=== PATIENT | male | born 1970 | race Caucasian/White ===

== ENCOUNTER → 2020-12-02 16:30 | Outpatient (CLI) | payer BC, SELFPAY ==
[2020-12-02 17:54] LABS: Color, Urine Yellow (Yellow); Glucose, Dipstick 250 mg/dl (Normal); Ketone-Dipstick Negative (Negative); Leukocyte Esterase-Dipstick Negative /ul (Negative); Nitrite-Dipstick Negative (Negative); Occult Blood-Urine 10 /ul (Negative); Protein-Dipstick 15 mg/dl (Negative); Urine Bilirubin Dipstick Negative (Negative); Urine Clarity Clear (Clear); Urine Urobilinogen Normal (Normal)
[2020-12-02 17:59] LABS: Cholesterol 175 mg/dL (200); Glucose 345 mg/dL (74-106); High Density Lipoprotein 40 mg/dL; Triglycerides 253 mg/dL; Very Low Density Lipoprotein 51 mg/dL (5-40)
== END ==
PROVIDERS: PCP Family Medicine; Referring Provider Family Medicine; Visit Provider Family Medicine
DX: R35.0 Frequency of micturition (principal); Z80.42 Family history of malignant neoplasm of prostate; Z13.1 Encounter for screening for diabetes mellitus; Z13.220 Encounter for screening for lipoid disorders
CPT/HCPCS: 36415; 80061; 81002; 82947; 84153; G0103

== ENCOUNTER 2020-12-25 10:39 | Emergency (ER) | payer BC, SELFPAY ==
[2020-12-25 10:40] VITALS: BP 162/93; PULSE 80; RESP 16; TEMP 36.2; O2SAT 98; BMI 34.2
[2020-12-25 10:43] VITALS: BP 162/93; PULSE 83; RESP 17; O2SAT 98
--- NOTE | 2020-12-25 10:43 | NURSING ---
NO OLD EKGS
--- NOTE | 2020-12-25 10:49 | NURSING ---
NO OLD EKGS
--- NOTE | 2020-12-25 10:57 | EKG12_ITS ---
Test Reason : SYNCOPE Blood Pressure : / mmHG Vent. Rate : 073 BPM Atrial Rate : 073 BPM P-R Int : 162 ms QRS Dur : 108 ms QT Int : 362 ms P-R-T Axes : 051 -21 032 degrees QTc Int : 398 ms Normal sinus rhythm Nonspecific T wave abnormality Abnormal ECG Confirmed by BERLIN SANTIAGO, SEAN ([id number]), field map editor MIKA VELA ([id number]) on 12/30/2020 9:49:15 AM Referred By: ARIANA Confirmed By:TONY SLADE MD
--- NOTE | 2020-12-25 10:57 | CT_ITS ---
STUDY: CT BRAIN WITHOUT CONTRAST REASON FOR EXAM: Male, 50 years old. Headache after trauma RADIATION DOSAGE (If Supplied By Facility): CTDIvol = ( 44.99 ) mGy, DLP = ( 812.98 ) mGycm TECHNIQUE: Transaxial CT imaging of the brain was performed without administration of intravenous contrast material. Individualized dose optimization techniques were used for this CT. COMPARISON: No relevant priors. FINDINGS: Normal soft tissue structures. Normal calvarium. Normal size ventricles and extra-axial spaces for the patient''s age. Normal white matter tracts of the cerebral hemispheres. Normal basal ganglia and thalami. Normal brainstem. Normal cerebellum. There is no intracranial hemorrhage. There are no findings of an acute ischemic infarction. Normal visualized paranasal sinuses. CT/Brain/Head without Contrast IMPRESSION: Normal unenhanced CT scan of the brain. Electronically Signed: Cortez Casillas MD at 11:43 EDT , Service support ,
--- NOTE | 2020-12-25 11:01 | EDS_ITS ---
HPI History of Present Illness Chief Complaint: Syncope Narrative Narrative: Patient presents after a syncopal episode. He was drinking water while standing he became very lightheaded after which he passed out. He did hit his head. He has no neck pain. He has no chest pain shortness of breath or palpitations. He has no lower extremity edema or calf pain he has no DVT or PE risk factors. He is denying any abdominal pain or flank pain. No recent fever or chills. No prior cardiac medical problems he has blood pressure initially in the ED that is elevated but he denies history of hypertension. He was found to have hyperglycemia apparently it has been diet controlled in the past and does not need any medications. [facility] Medical History (Updated 12/25/20 @ 13:[address] Terrence Ca MD) Borderline diabetes Home Medications NK 12/25/20 [History Last Taken Unknown] Allergy/AdvReac Type Severity Reaction Status Date / Time No Known Allergies Allergy Verified 12/25/20 10:40 Social History Smoking Status: Never smoker ROS ROS ED ROS Narrative Past medical history: Reviewed as in HPI Medications: Reviewed Social history: Noncontributory Review of systems: All systems negative except as indicated General: No fever. Syncope as in HPI Eyes: No visual changes Head: Frontal head injury from hitting a machine at work after fainting ENT: No upper airway congestion, normal voice Neck: No neck pain Cardiovascular: No chest pain Respiratory: No shortness of breath or cough Gastrointestinal: No abdominal pain, nausea vomiting or diarrhea Genitourinary: No dysuria Musculoskeletal: Denies myalgias no difficulty with ambulation Skin: No rash Neurological: No memory loss, confusion or any focal weakness Psych: No recent behavioral changes Hematologic: No easy bleeding or easy bruising EXAM Physical Exam Narrative Exam Narrative: Physical exam General: Well nourished, Well developed, No Acute Distress Head: Normocephalic, there is a small abrasion on the front of his scalp midline. No other contusions or hematomas. Eyes: Conjunctiva not pale ENT: Moist mucous membranes Neck: Supple, Nontender, No lymphadenopathy. No C-spine tenderness Cardiovascular: Regular rate, Regular rhythm Respiratory: No distress, CTA bilaterally Abdomen: Soft, Nontender, Nondistended Back: Nontender, Normal Inspection. Negative for: CVA tenderness Extremities: Nontender, No edema Skin: Normal color, No rash Neurological: Alert, Normal Strength, Normal Sensation Psychological: Normal affect Const Vital Signs: 12/25/20 10:40 12/25/20 10:43 12/25/20 11:21 Temperature 97.2 F L Temperature Source Temporal Pulse Rate 80 83 Pulse Rate [Lying] Pulse Rate [Sitting] Pulse Rate [Standing] Respiratory Rate 16 17 Respiratory Pattern Normal Blood Pressure 162/93 H 162/93 H Blood Pressure [Lying] Blood Pressure [Sitting] Blood Pressure [Standing] Blood Pressure Mean 116 116 Blood Pressure Mean [Lying] Blood Pressure Mean [Sitting] Blood Pressure Mean [Standing] Pulse Ox 98 98 Oxygen Delivery Method Room Air Room Air 12/25/20 11:58 Temperature Temperature Source Pulse Rate Pulse Rate [Lying] 72 Pulse Rate [Sitting] 78 Pulse Rate [Standing] 81 Respiratory Rate Respiratory Pattern Blood Pressure Blood Pressure [Lying] 138/85 H Blood Pressure [Sitting] 149/92 H Blood Pressure [Standing] 154/98 H Blood Pressure Mean Blood Pressure Mean [Lying] 102 Blood Pressure Mean [Sitting] 111 Blood Pressure Mean [Standing] 116 Pulse Ox Oxygen Delivery Method MDM MDM MDM Narrative Medical decision making narrative: Patient has a normal ED work-up. He appears well. He does not meet criteria for admission according to [place] syncope rule. There is no evidence of DVT or PE. Patient is hyperglycemic apparently his PCP knows about it and is managing it although he is not on medication at this time. He just had an appointment a few days ago. I discussed this with the patient, I told him that if the blood sugars do not improve in the next few weeks he will likely be on medication, at this time he does not want to start him, he wants to continue the diet and exercise. Otherwise I will discharge him in stable condition. Lab Data Labs: Laboratory Results - last 24 hr 12/25/20 12/25/20 11:15 11:15 WBC 8.7 RBC 4.69 Hgb 14.6 Hct 43.0 MCV 91.7 MCH 31.1 MCHC 34.0 RDW Std Deviation 39.9 RDW Coeff of Sanju 11.9 Plt Count 255 MPV 9.4 Immature Gran % (Auto) 0.600 Neut % (Auto) 75.3 H Lymph % (Auto) 14.8 L Camp % (Auto) 8.3 Eos % (Auto) 0.7 Baso % (Auto) 0.3 Absolute Neuts (auto) 6.6 Absolute Lymphs (auto) 1.29 Nucleated RBC % 0 Sodium 138 Potassium 4.1 Chloride 106 Carbon Dioxide 27.0 Anion Gap 5 BUN 17 Creatinine 1.01 Estim Creat Clear Calc 98.89 Est GFR (MDRD) Af Amer 100 Est GFR (MDRD) Non-Af 83 BUN/Creatinine Ratio 16.8 Glucose 228 H Calcium 8.5 Total Bilirubin 0.30 AST 22 ALT 45 Alkaline Phosphatase 89 Troponin I < 0.015 Total Protein 6.8 Albumin 3.7 Globulin 3.1 Albumin/Globulin Ratio 1.2 Radiography Diagnostic Testing: Radiology Impression Brain CT 12/25/20 10:57 IMPRESSION: Normal unenhanced CT scan of the brain. Electronically Signed: Cortez Casillas MD at 11:43 EDT , Service support , Chest X-Ray 12/25/20 11:37 IMPRESSION: Normal x-ray examination of the chest. Electronically Signed: Cortez Casillas MD at 11:46 EDT , Service support , EKG Initial EKG: Comments: Sinus rhythm with a rate of 73. Normal DE and QTc intervals. Otherwise unremarkable EKG no obvious ischemic changes present. Interpreted by emergency doctor Discharge Plan Triage Chief Complaint: Syncope ED Provider: Terrence Ca Dx/Rx/DC Orders Clinical Impression: Syncope Instructions: ED Fainting, Uncertain Cause Prescriptions: No Action NK RF: 0 Primary Care Provider: Salvador Morejon Referrals: Brandon Dominguez MD [STAFF PHYSICIAN] - 3-5 Days Salvador Morejon MD [Primary Care Provider] - Disposition Disposition: Home, self care
[2020-12-25 11:20] LABS: Absolute Lymphocyte Count 1.29 X10^3/uL (0.83-4.51); Absolute Neutrophil Count 6.6 X10^3/uL (2.0-7.7); Basophil# 0.03 X10^3/uL; Basophil% 0.3 % (0-1); Eosinophil# 0.06 X10^3/uL; Eosinophils% 0.7 % (0-5); Hemoglobin 14.6 g/dL (13.0-16.5); Lymphocyte # 1.29 X10^3/ul (0.83-4.51); Lymphocyte % 14.8 % (19-41); Mean Corpuscular Hgb 31.1 pg (27.0-32.0); Mean Corpuscular Volume 91.7 fL (80-94); Mean Platelet Vol. 9.4 fl (6.2-12.0); Monocyte# 0.72 X10^3/uL; Monocyte% 8.3 % (0-10); NRBC Flagged by Analyzer 0 % (0-5); Neutrophil # 6.55 X10^3/uL (2.7-7.7); Neutrophil % 75.3 % (47-70); Platelet Count 255 K/mm3 (150-450); RBC Distribution Width CV 11.9 % (11.6-14.6); RBC Distribution Width SD 39.9 fl (35.1-43.9); Red Blood Count 4.69 M/mm3 (4.6-6.2); White Blood Count 8.7 K/mm3 (4.4-11.0)
--- NOTE | 2020-12-25 11:37 | RAD_ITS ---
STUDY: X-RAY CHEST REASON FOR EXAM: Male, 50 years old. Weakness TECHNIQUE: 2 AP portable views COMPARISON: None. FINDINGS: EKG leads overlie the chest The lungs are clear and expanded. There is no demonstrated pleural abnormality. Normal size heart. Normal mediastinum and fernanda. Normal visualized pulmonary arteries. Normal visualized aortic arch and descending thoracic aorta. Normal visualized thoracic spine. Normal visualized ribs, clavicles, and shoulders. There is no demonstrated abnormality of the visualized soft tissue structures of the upper abdomen. RAD/Chest 1 View (Portable) IMPRESSION: Normal x-ray examination of the chest. Electronically Signed: Cortez Casillas MD at 11:46 EDT , Service support ,
[2020-12-25 11:40] LABS: ALB/GLOB Ratio 1.2 RATIO (0.9-2.4); AST(SGOT) 22 U/L (15-37); Alanine Aminotransfer ALT/SGPT 45 U/L (16-61); Albumin, Serum 3.7 g/dL (3.2-5.0); Alkaline Phosphatase 89 U/L (45-117); Anion Gap 5 (5-15); BUN 17 mg/dL (7-18); BUN/Creat Ratio 16.8 RATIO (10-20); Calcium,Total 8.5 mg/dL (8.5-10.1); Chloride 106 mmol/L (98-107); Creatinine, Serum 1.01 mg/dL (0.70-1.30); EST Glomerular Filtration Rate 83 mL/min (>60); Est Glom Filt Rate - Afr Amer 100 mL/min (>60); Estimated Creatinine Clearance 98.89 ml/min; Globulin 3.1 g/dL (2.2-4.2); Glucose 228 mg/dL (74-106); Potassium 4.1 mmol/L (3.5-5.1); Protein, Total 6.8 g/dL (6.4-8.2); Sodium Level 138 mmol/L (136-145)
[2020-12-25 11:58] VITALS: BP 138/85; BP 149/92; BP 154/98; PULSE 72; PULSE 78; PULSE 81
[2020-12-25 13:26] VITALS: BP 158/87; PULSE 70; RESP 18; O2SAT 98
== END 2020-12-25 13:27 | disposition home or self-care (01) ==
PROVIDERS: Emergency Provider Emergency Medicine; PCP Family Medicine
DX: R55 Syncope and collapse (principal); S00.01XA Abrasion of scalp, initial encounter; W19.XXXA Unspecified fall, initial encounter; Y93.9 Activity, unspecified; Y92.9 Unspecified place or not applicable
CPT/HCPCS: 70450; 71045; 80053; 84484; 85025; 93005; 96360; 99284; J7040; A4216

== ENCOUNTER → 2021-02-19 16:51 | Outpatient (CLI) | payer BC, SELFPAY ==
[2021-02-19 19:27] LABS: PSA,Total- Diagnostic 5.98 ng/mL (0.0-4.0)
== END ==
PROVIDERS: PCP Family Medicine; Referring Provider Urology; Visit Provider Urology
DX: R97.20 Elevated prostate specific antigen [PSA] (principal)
CPT/HCPCS: 36415; 84153

== ENCOUNTER → 2021-02-23 14:14 | Outpatient (CLI) | payer BC, SELFPAY ==
[2021-02-25 15:19] LABS: PSA, Free 0.86 ng/mL; PSA, Free % 16.5 % (.); PSA, Total Ultrasensitive 5.2 ng/mL (0.0-4.0)
== END ==
PROVIDERS: PCP Family Medicine; Referring Provider Urology; Visit Provider Urology
DX: R97.20 Elevated prostate specific antigen [PSA] (principal)
CPT/HCPCS: 36415; 84153; 84154

== ENCOUNTER → 2021-03-16 | Outpatient (CLI) | payer BC, SELFPAY ==
--- NOTE | 2021-03-16 08:00 | PROSBIL_PTH ---
PATIENT: PJ BILLS LOC: [facility] U#:[id number] AGE/SX: 50/M ROOM: RE03/16/[address]: Dr. Brad Maravilla MD : 1970 BED: DIS: 03/16/2021 SPEC #: [id number] RECD: 03/16/21 16:24 STATUS: NALLELY REAndrew #: [id number] VINCENT: 03/16/21 08:[address]: Brad Maravilla DEPT: SURGICAL PATHOLOGY RECD BY: Nidia Oh ENTERED: 03/17/21 13:01 SP TYPE: PROST BX ROSA DR: Dr. Salvador Morejon MD Tissues: A - PROSTATE RIGHT B - PROSTATE RIGHT C - PROSTATE RIGHT D - PROSTATE LEFT E - PROSTATE LEFT F - PROSTATE LEFT Procedures: PROSTATE BX HEADER OPERATION: Prostate biopsy PRE-OP DIAGNOSIS: R97.20 TISSUE SUBMITTED: A - Right apex, B - Right mid, C - Right base, D - Left apex, E - Left mid, F - Left base MICROSCOPIC DIAGNOSIS A. Right prostate, apex, core biopsy: Prostatic tissue, negative for malignancy. Focal mild chronic inflammation. B. Right prostate, mid, core biopsy: Prostatic tissue, negative for malignancy. C. Right prostate, base, core biopsy: Prostatic tissue, negative for malignancy. D. Left prostate, apex, core biopsy: Prostatic tissue, negative for malignancy. E. Left prostate, mid, core biopsy: Prostatic tissue, negative for malignancy. F. Left prostate, base, core biopsy: Prostatic tissue, negative for malignancy. SJ:yanet 03/18/2021 MICROSCOPIC DESCRIPTION Slides are reviewed. GROSS DESCRIPTION A - Received is one container designated prostate, right apex. The specimen consists of two elongated fragments of light palacios-white soft tissue each measuring 0.9 cm in length and 0.1 cm in diameter. The specimen is totally submitted in one cassette. B - Received is one container designated prostate, right mid. The specimen consists of two elongated fragments of light palacios-white soft tissue measuring 0.2 and 0.6 cm in length and 0.1 cm in diameter. The specimen is totally submitted in one cassette. C - Received is one container designated prostate, right base. The specimen consists of two elongated fragments of light palacios-white soft tissue each measuring 0.7 cm in length and 0.1 cm in diameter. The specimen is totally submitted in one cassette. D - Received is one container designated prostate, left apex. The specimen consists of two elongated fragments of light palacios-white soft tissue each measuring 0.4 cm in length and 0.1 cm in diameter. The specimen is totally submitted in one cassette. E - Received is one container designated prostate, left mid. The specimen consists of two elongated fragments of light palacios-white soft tissue each measuring 0.7 cm in length and 0.1 cm in diameter. The specimen is totally submitted in one cassette. F - Received is one container designated prostate, left base. The specimen consists of two elongated fragments of light palacios-white soft tissue each measuring 0.8 cm in length and 0.1 cm in diameter. The specimen is totally submitted in one cassette. / SJ:rg 03/17/21 TC:3 CPT: 56325 x6
== END | disposition home or self-care (01) ==
LOC: LABSPEC 16:36
PROVIDERS: PCP Family Medicine; Referring Provider Urology; Visit Provider Urology
DX: R97.20 Elevated prostate specific antigen [PSA] (principal)
CPT/HCPCS: 88305; G0416

== ENCOUNTER 2021-10-02 14:15 | Outpatient (CLI) | payer BC, SELFPAY ==
[2021-10-02 16:04] LABS: PSA,Total- Diagnostic 6.83 ng/mL (0.0-4.0)
== END 2021-10-02 23:59 | disposition home or self-care (01) ==
PROVIDERS: PCP Family Medicine; Referring Provider Urology; Visit Provider Urology
DX: R97.20 Elevated prostate specific antigen [PSA] (principal)
CPT/HCPCS: 36415; 84153

== ENCOUNTER 2022-03-05 14:23 | Outpatient (CLI) | payer BC, SELFPAY ==
[2022-03-08 12:13] LABS: PSA, Free 0.97 ng/mL; PSA, Free % 23.1 % (.); PSA, Total Ultrasensitive 4.2 ng/mL (0.0-4.0)
== END 2022-03-05 23:59 | disposition home or self-care (01) ==
LOC: MTLAB 14:24
PROVIDERS: PCP Family Medicine; Referring Provider Urology; Visit Provider Urology
DX: R97.20 Elevated prostate specific antigen [PSA] (principal)
CPT/HCPCS: 36415; 84153; 84154

== ENCOUNTER → 2023-03-10 | Outpatient (CLI) | payer BC, SELFPAY ==
[2023-03-12 10:08] LABS: PSA, Free 1.16 ng/mL; PSA, Free % 22.4 % (.)
== END | disposition home or self-care (01) ==
LOC: MTLAB 14:21
PROVIDERS: PCP Family Medicine; Referring Provider Urology; Visit Provider Urology
DX: R97.20 Elevated prostate specific antigen [PSA] (principal)
CPT/HCPCS: 36415; 84153; 84154

== ENCOUNTER → 2025-04-30 | Outpatient (CLI) | payer BC, SELFPAY ==
--- OUTSIDE RECORDS SUMMARY | 2025-04-30 17:23 | XMS RPT_ITS | CCD ---
Author Organization [facility] Care Team Providers Care Supervisor Diagnostic Name Role Phone Pam Stinson Attending Unavailable Kenny Griffin Primary Care Unavailable Problems Problem Classification Problem Date Documented Da te Episodic/Chronic Diabetes mellitus without complication (1 source) Type 2 diabetes mellitus without complications; Translations: [Type 2 diabetes mellitus without complications] Onset: 04-25-2025 Chronic Other nutritional; endocrine; and metabolic disorders (1 source) Abnormal weight loss; Translations: [Abnormal weight loss] Onset: 04-25-2025 Episodic Other screening for suspected conditions (not mental disorders or infectious disease) (1 source) Encounter for screening for lipoid disorders; Translations: [Encounter for screening for lipoid disorders] Onset: 04-25-2025 Episodic Syncope (2 sources) Syncope; Translations: [Syncope and collapse] 12-25-2020 Episodic Results Test Name Value Interpretation Reference Range Facility No Panel InformationOrdered By: Brad Maravilla on 03-10-2023 Percent Free Prostate Specific Ag 1.16 ng/mL N/A [facility] Comment on above: Walter ECLIA methodol ogy. Prostate Specific Ag, Ultra-Sensitv 5.180 ng/mL 0.000-4.000 [facility] Comment on above: Walter ECLIA methodol ogy.According to the [place] [employer], Serum PSAshould decrease and remain at undetectable levels afterradical prostatectomy. The AUA defines biochemicalrecurrence as an initial PSA value 0.200 ng/mL or greaterfollowed by a subsequent confirmatory PSA value 0.200 ng/mLor greater. Values obtained with different assay methods orkits cannot be used interchangeably. Results cannot beinterpreted as absolute evidence of the presence or absenceof malignant disease. Serum or plasma free prostat e specific antigen/total prostate specific antigen ratioOrdered By: Brad Maravilla on 03-10-2023 Free PSA/Total PSA [Mass fraction] 22.4 % . [facility] Comment on above: The table below list s the probability of prostate cancer formen with non-suspicious GRACY results and total PSA between4 and 10 ng/mL, by patient age (Catalona et al, TAMMY 1998,279:1542). % Free PSA 50-64 yr 65-75 yr 0.00-10.00% 56% 55% 10.01-15.00% 24% 35% 15.01-20.00% 17% 23% 20.01-25.00% 10% 20% >25.00% 5% 9%Please note: Bailey et al did not make specific recommendations regarding the use of percent free PSA for any other population of men.Performed at: [facility] [id number] Director: Harry Aguirre PhD, Phone: [phone] No Panel Informationon 03-05 Percent Free Prostate Specific Ag 0.97 ng/mL N/A [facility] Work Phone: Comment on above: [employer] methodol ogy. Prostate Specific Antigen Total 4.2 ng/mL 0.0-4.0 [facility] Work Phone: Comment on above: [employer] methodol ogy.According to the [place] [employer], Serum PSAshould decrease and remain at undetectable levels afterradical prostatectomy. The AUA defines biochemicalrecurrence as an initial PSA value 0.2 ng/mL or greaterfollowed by a subsequent confirmatory PSA value 0.2 ng/mLor greater. Values obtained with different assay methods orkits cannot be used interchangeably. Results cannot beinterpreted as absolute evidence of the presence or absenceof malignant disease. Serum or plasma free prostat e specific antigen/total prostate specific antigen ratioon 03-05-2022 Free PSA/Total PSA [Mass fraction] 23.1 % . [facility] Work Phone: Comment on above: The table below list s the probability of prostate cancer formen with non-suspicious GRACY results and total PSA between4 and 10 ng/mL, by patient age (Catalona et al, TAMMY 1998,279:1542). % Free PSA 50-64 yr 65-75 yr 0.00-10.00% 56% 55% 10.01-15.00% 24% 35% 15.01-20.00% 17% 23% 20.01-25.00% 10% 20% >25.00% 5% 9%Please note: Bailey et al did not make specific recommendations regarding the use of percent free PSA for any other population of men.Performed at: [address] [id number] Director: Harry Aguirre PhD, Phone: [phone] Encounters Encounter Date Encounter Type Care Provider Facility Start: 04-25-2025 [facility] Facility :[facility] Start: 03-10-2023 End: 03-10-2023 ambulatory [facility] Work Phone: Start: 03-10-2023 End: 03-10-2023 Patient encounter procedure [facility] Work Phone: Start: 03-05-2022 End: 03-05-2022 Patient encounter procedure [facility] Payers Date Payer Category Payer Self-pay [id number] 2025 Unknown [id number] Private Health Insurance [id number] Unknown [id number] Social History Date Type Detail Facility Start: 12-25-2020 [facility] Start: 12-25-2020 Non-smoker [facility] Start: 1970 Sex Assigned At Male W [facility] Evaluation note Note Date & Type Note Facility Evaluation note No assessment information availa ble [facility] Work Phone: Advance Directives No Advanced Directives Records Found Advance Directive Response Recorded Date/ Time Living Will No December 25, 2020 1 0:44am Power of Psychological Anthropologist No December 25, 2020 10:44am Summary Purpose Family History No Family History Records Found Additional Source Comments Goals (unrecognized section and content) Goals may be documented in a n alternate sectionGoals may be documented in an alternate section Care Teams (unrecognized sec tion and content) Team Status: Active Member Role Status Dates Clint Culp MD Family Provider Active Dr. Kenny Griffin DO Primary Care Provider Active Team Status: Inactive Member Role Status Dates Dr. Brad Maravilla MD Attending Provider, Referr ing Provider Active Dr. Kenny Griffin DO Primary Care Provider Active (unrecognized sect ion and content) No Status Records Found INFORMATION SOURCE (unrecogn ized section and content) DATE CREATED AUTHOR 04/27/[address] [facility] FOR RECORDS PERTAINING TO PATIENTS WHO ARE OR HAVE BEEN ENROLLED IN A CHEMICAL DEPENDENCY/SUBSTANCEABUSE PROGRAM, SOME INFORMATION MAY BE OMITTED. This clinical summary was aggregated from multiple sources. Caution should be exercised in using it in the provision of clinical care. This summary normalizes information from multiple sources, and as a consequence, information in this document may materially change the coding, format and clinical context of patient data. In addition, data may be omitted in some cases. CLINICAL DECISIONS SHOULD BE BASED ON THE PRIMARY CLINICAL RECORDS. [employer] provides no warranty or guarantee of the accuracy or completeness of information in this document.
[2025-04-30 19:02] LABS: Hematocrit 38.1 % (40-54); Hemoglobin 13.5 g/dL (13.0-16.5); Immature Granulocytes Count 0.010 X10^3/uL (0.0-0.0); Mean Corp Hgb Conc 35.4 g/dL (32-36); Mean Corpuscular Volume 86.6 fL (80-94); Mean Platelet Vol. 10.6 fl (6.2-12.0); NRBC Flagged by Analyzer 0 % (0-5); Platelet Count 251 K/mm3 (150-450); RBC Distribution Width CV 12.8 % (11.6-14.6); RBC Distribution Width SD 39.9 fl (35.1-43.9); Red Blood Count 4.40 M/mm3 (4.6-6.2); White Blood Count 5.7 K/mm3 (4.4-11.0)
[2025-04-30 19:14] LABS: Cholesterol 127 mg/dL (<=200); Ferritin 495 ng/mL (37-417); Free T3 3.1 pg/mL (2.18-3.98); Low Density Lipoprotein Calc. 70 mg/dL; Triglycerides 61 mg/dL; Very Low Density Lipoprotein 12 mg/dL (5-40); cholesterol:hdl ratio screen 2.83
[2025-04-30 21:02] LABS: AST(SGOT) 24 U/L (<=37); Alanine Aminotransfer ALT/SGPT 20 U/L (<=46); Albumin, Serum 4.3 g/dL (3.5-5.0); Alkaline Phosphatase 95 U/L (40-129); BUN 18 mg/dL (4-19); Calcium,Total 9.2 mg/dL (7.6-11.0); Carbon Dioxide 28.9 mmol/L (21.0-32.0); Chloride 97 mmol/L (98-108)
[2025-04-30 21:03] LABS: Glucose 168 mg/dL (70-99)
[2025-04-30 21:16] LABS: Anion Gap 15 (5-15); BUN/Creat Ratio 17.9 RATIO (10-20); Globulin 3.0 g/dL (2.2-4.2); Iron 51 ug/dL (65-175); Iron Binding Capacity,Total 270 ug/dL (250-450); Iron Binding Capacity,Unsat 219 ug/dL (228-428)
[2025-05-01 08:57] LABS: Potassium 2.5 mmol/L (3.3-5.1)
== END | disposition home or self-care (01) ==
PROVIDERS: PCP Nurse Practitioner Family; Referring Provider Nurse Practitioner Family; Visit Provider Nurse Practitioner Family
DX: Z13.220 Encounter for screening for lipoid disorders (principal); E11.9 Type 2 diabetes mellitus without complications; R63.4 Abnormal weight loss
CPT/HCPCS: 36415; 80053; 80061; 82728; 83540; 83550; 84439; 84443; 84481; 85025; 86376

== ENCOUNTER 2025-05-01 12:10 | Emergency (ER) | payer BC, SELFPAY ==
[2025-05-01] VITALS (14 sets, daily range): BP systolic 158–186; BP diastolic 87–106; PULSE 57–77; RESP 12–18; TEMP 36.6–36.8; O2SAT 83–100; BMI 27.1
--- NOTE | 2025-05-01 14:10 | EKG12_ITS ---
Test Reason : ABN LABS Blood Pressure : */* mmHG Vent. Rate : 56 BPM Atrial Rate : 56 BPM P-R Int : 184 ms QRS Dur : 114 ms QT Int : 460 ms P-R-T Axes : 19 -23 198 degrees QTcB Int : 443 ms Sinus bradycardia Left ventricular hypertrophy with repolarization abnormality ( R in aVL , [place] product ) Abnormal ECG Confirmed by Alok Andrews ([id number]), film and video editor MIKA VELA ([id number]) on 05/03/2025 5:47:11 AM Referred By: Confirmed By: Alok Andrews
--- NOTE | 2025-05-01 14:11 | EDS_ITS ---
HPI History of Present Illness Chief Complaint: Abn Labs Narrative Narrative: 54-year-old male presents with his because of abnormal labs. It was reported that he had a low potassium. They relate history that he has not seen a doctor in quite some time. They went on for last approximately 5 days ago, and had lab work drawn yesterday. They saw a provider at the [facility]. They were told today that he had a low potassium and that he needed to report to the ED. Patient is asymptomatic with this. He does not feel any heart palpitations, denies any weakness. He does not take any diuretics, takes no medications. He did state that he had a few episodes of diarrhea within the last week. [facility] Medical History Borderline diabetes Home Medications ?Medication ?Instructions ?Recorded ?Last Taken ?Type potassium chloride 20 mEq 40 meq (2 x 20 mEq) PO DAILY #10 05/01/25 Unknown Rx tablet,extended TABLETS release(part/cryst) (Klor-Con M) Allergy/AdvReac Type Severity Reaction Status Date / Time No Known Allergies Allergy Verified 05/01/25 12:13 Social History Smoking Status: Never smoker ROS ROS ED ROS Narrative Review of system is negative for generalized weakness, heart palpitations, denies any symptoms. Asymptomatic. States feels well. Did have diarrhea that is resolved over the last week. EXAM Physical Exam Narrative Exam Narrative: Afebrile. Vital signs noted. Nontoxic-appearing. Cardiovascular examination reveals regular rate and rhythm. Lungs are clear to auscultation bilaterally. Abdomen is soft and nontender with positive bowel sounds, no guarding or rebound. Neurological examination nonfocal, nonlateralizing. Moves all extremities. No noted pedal edema. Const Vital Signs: 05/01/25 12:10 05/01/25 13:18 05/01/25 13:20 Temperature 97.8 F 98 F Temperature Source Oral Oral Pulse Rate 70 72 Respiratory Rate 18 12 Respiratory Effort Normal Respiratory Pattern Normal Blood Pressure 181/103 H 163/87 H Blood Pressure Mean 129 112 Pulse Ox 100 96 Oxygen Delivery Method Room Air Room Air 05/01/25 14:00 05/01/25 15:34 05/01/25 16:13 Temperature 98.1 F 98 F Temperature Source Oral Oral Pulse Rate 60 72 Respiratory Rate 14 12 Respiratory Effort Respiratory Pattern Blood Pressure 181/92 H 166/97 H 166/97 H Blood Pressure Mean 121 120 120 Pulse Ox 98 98 Oxygen Delivery Method Room Air Room Air 05/01/25 17:05 05/01/25 17:06 05/01/25 17:24 Temperature 98.2 F Temperature Source Oral Pulse Rate 62 60 57 L Respiratory Rate 17 14 16 Respiratory Effort Respiratory Pattern Blood Pressure 186/106 H 186/106 H 179/97 H Blood Pressure Mean 128 132 122 Pulse Ox 99 Oxygen Delivery Method Room Air 05/01/25 17:25 05/01/25 18:26 05/01/25 18:29 Temperature 98 F Temperature Source Oral Pulse Rate 77 74 Respiratory Rate 16 14 Respiratory Effort Respiratory Pattern Blood Pressure 179/97 H 171/95 H 171/94 H Blood Pressure Mean 124 117 119 Pulse Ox 83 95 Oxygen Delivery Method Room Air 05/01/25 20:14 05/01/25 21:00 05/01/25 21:43 Temperature 97.9 F Temperature Source Pulse Rate 57 L 59 L 59 L Respiratory Rate 15 15 15 Respiratory Effort Respiratory Pattern Blood Pressure 158/90 H Blood Pressure Mean 112 Pulse Ox 100 Oxygen Delivery Method MDM MDM MDM Narrative Medical decision making narrative: Differential diagnosis includes but not limited to laboratory error versus potassium loss from diarrhea versus hypokalemia from acute renal failure. I did review his outpatient laboratory work and he had a normal creatinine and his potassium was low at 2.5. I reviewed his CBC that was obtained per protocol and is grossly unremarkable except for hematocrit 38.7. Normal white count of 5.4, hemoglobin 14.1. CMP is significant for potassium of 2.5 with BUN normal at 13 and creatinine 0.75. LFTs are grossly unremarkable. I added a magnesium given his repeat potassium being low at 2.5. It is normal at 1.9. At this point in time, he was given oral potassium of 40 mill equivalents, as well as 40 mill equivalents intravenously. I feel he can be discharged to follow-up with further potassium supplementation orally and repeat potassium check by his primary care provider. EKG had been obtained and interpreted by myself independently as sinus bradycardia at 56 bpm without ectopy or acute ST changes, no STEMI. Repeat examination prior to discharge shows him feeling the same, asymptomatic. He was written a prescription for potassium to take 40 mill equivalents daily for up to 5 days. He was told he should have his potassium rechecked by his primary care provider in the next 3 to 5 days. Return instructions to the emergency department were reviewed. Disposition is discharged home in stable condition. History & Record Review Discussion w/independent historian: Patient and Family Additional record(s) reviewed:: Prior outpatient record (Hypokalemia on outpatient labs.) Lab Data Attestation: I reviewed the patient's lab results. Labs: Laboratory Results - last 24 hr 05/01/25 05/01/25 05/01/25 12:20 13:37 14:31 WBC 5.4 RBC 4.49 L Hgb 14.1 Hct 38.7 L MCV 86.2 MCH 31.4 MCHC 36.4 H RDW Std Deviation 39.7 RDW Coeff of Sanju 12.7 Plt Count 225 MPV 9.6 Immature Gran % (Auto) 0.200 Neut % (Auto) 59.2 Lymph % (Auto) 26.8 [place] % (Auto) 11.2 H Eos % (Auto) 2.0 Baso % (Auto) 0.6 Absolute Neuts (auto) 3.2 Absolute Lymphs (auto) 1.44 Nucleated RBC % 0 Sodium Cancelled Cancelled 141 Potassium Cancelled Cancelled 2.5 L* Chloride Cancelled Cancelled 100 Carbon Dioxide Cancelled Cancelled 28.9 Anion Gap Cancelled Cancelled 12 BUN Cancelled Cancelled 13 Creatinine Cancelled Cancelled 0.75 Estim Creat Clear Calc Cancelled Cancelled 127.25 Est GFR (MDRD) Non-Af Cancelled Cancelled 107 BUN/Creatinine Ratio Cancelled Cancelled 17.7 Glucose Cancelled Cancelled 169 H Calcium Cancelled Cancelled 9.1 Magnesium 1.9 Total Bilirubin Cancelled Cancelled 0.57 AST Cancelled Cancelled 23 ALT Cancelled Cancelled 16 Alkaline Phosphatase Cancelled Cancelled 94 Total Protein Cancelled Cancelled 6.8 Albumin Cancelled Cancelled 4.2 Globulin Cancelled Cancelled 2.7 Albumin/Globulin Ratio Cancelled Cancelled 1.5 Discharge Plan Triage Chief Complaint: Abn Labs ED Provider: Alexandru Lee Dx/Rx/DC Orders Clinical Impression: Hypokalemia Instructions: ED Hypokalemia Prescriptions: New potassium chloride [Klor-Con M20] 20 mEq tablet,ER particles/crystals 40 meq PO DAILY Qty: 10 0RF Primary Care Provider: Pam Stinson Referrals: Pam Stinson, PART TIME RECEPTIONIST-C [Primary Care Provider, Family Practice] - 3-5 Days Activity Restrictions/Additional Instructions: Supplement your potassium with 40 halie equivalents daily for the next 3 days. Have your potassium rechecked in the next 3 to 5 days by your primary care provider. Print Language: Ivorian Disposition Disposition: Home, Self Care Discharge Date/Time: 05/01/25 21:43
[2025-05-01 14:38] LABS: Hematocrit 38.7 % (40-54); Hemoglobin 14.1 g/dL (13.0-16.5); Immature Granulocytes Count 0.010 X10^3/uL (0.0-0.0); Mean Corp Hgb Conc 36.4 g/dL (32-36); Mean Corpuscular Volume 86.2 fL (80-94); Mean Platelet Vol. 9.6 fl (6.2-12.0); NRBC Flagged by Analyzer 0 % (0-5); Platelet Count 225 K/mm3 (150-450); RBC Distribution Width CV 12.7 % (11.6-14.6); RBC Distribution Width SD 39.7 fl (35.1-43.9); Red Blood Count 4.49 M/mm3 (4.6-6.2); White Blood Count 5.4 K/mm3 (4.4-11.0)
[2025-05-01 15:42] LABS: AST(SGOT) 23 U/L (<=37); Alanine Aminotransfer ALT/SGPT 16 U/L (<=46); Albumin, Serum 4.2 g/dL (3.5-5.0); Alkaline Phosphatase 94 U/L (40-129); Anion Gap 12 (5-15); BUN 13 mg/dL (4-19); BUN/Creat Ratio 17.7 RATIO (10-20); Calcium,Total 9.1 mg/dL (7.6-11.0); Carbon Dioxide 28.9 mmol/L (21.0-32.0); Chloride 100 mmol/L (98-108); Estimated Creatinine Clearance 127.25 ml/min (50-250); Globulin 2.7 g/dL (2.2-4.2); Glucose 169 mg/dL (70-99); Potassium 2.5 mmol/L (3.3-5.1)
[2025-05-01] MEDS: Potassium Chloride Oral Tablet 20 MEQ 40 MEQ PO (16:11)
[2025-05-01] MEDS: KCL 40mEq in 0.9% NS 40 MEQ/1,000 ML IV.SOLN 250 MEQ IV (16:26)
[2025-05-01 16:51] LABS: Magnesium 1.9 mg/dL (1.5-2.2)
== END 2025-05-01 21:43 | disposition home or self-care (01) ==
PROVIDERS: Emergency Provider Emergency Medicine; PCP Nurse Practitioner Family; Visit Provider Emergency Medicine
DX: E87.6 Hypokalemia (principal)
CPT/HCPCS: 80053; 83735; 85025; 93005; 96365; 96366; 99282; A4216

== ENCOUNTER → 2025-05-06 | Outpatient (CLI) | payer BC, SELFPAY ==
--- OUTSIDE RECORDS SUMMARY | 2025-05-06 15:42 | XMS RPT_ITS ---
Author Name Auto Generated Organization [facility] Care Team Providers Care Fact Checker Name Role Phone PAM STINSON Referring UnavailISIS Lima Attending Unavailable PROBLEMS DATE TYPE CONDITION / CODE ATTENDING STATUS QUITA RCE 05/06/2025 Active Screen for colon cancer / Z12.11(ICD-10) ISIS NIETO Active [facility] PROCEDURES No Procedure Records Found RESULTS CNOV Observed: 05/06/2025 4:00 PM Status: COMPLETED Source: [facility] Office Visit (GENSWS) SAUL BILLS ([id number]) 1970 Date Time Provider Department 05/06/25 4:00 PM ISIS NIETO GENLSEIA During your visit today, we recorded the following information about you: Pulse Respiration Blood pressure Weight 84/minute 14/minute 172/108 93.4 kg Isis Nieto APRN.CNP 05/06/2025 4:06 PM Signed HISTORY AND PHYSICAL Saul Prasanna Leslie : 1970 REFERRING PHYSICIAN: Pam Stinson [address] [facility] [id number] CHIEF COMPLAINT: Patient presents with: Consult: Due for colonoscopy HPI: Saul is a 54 year old male referred for endoscopy. Saul notes due for screening colonoscopy. Saul denies abdominal pain. Saul denies diarrhea. Saul denies constipation. Saul denies a change in bowel habits. Saul denies melena. Saul denies bright red blood per rectum. Saul notes family history of colon issues. Maternal grandfather with colon cancer Saul denies heartburn. Saul denies dysphagia. Saul has not undergone prior endoscopy. Current Outpatient Medications Medication Sig metFORMIN (GLUCOPHAGE) 500 mg tablet Take 500 mg by mouth two times a day with meals. multivitamin ORAL tablet Take one(1) tablet daily. naproxen 500 mg ORAL tablet Take 1 tablet by mouth twice daily as needed. FOR PAIN. TAKE WITH FOOD. cyclobenzaprine (FLEXERIL) 10 mg ORAL tablet Take 1 tablet by mouth every 8 hours as needed. FOR PAIN OR SPASMS No current facility-administered medications for this visit. ALLERGIES: Patient has no known allergies. No past medical history on file. PAST SURGICAL HISTORY Procedure Laterality Date TONSILLECTOMY PRIMARY/SECONDARY <AGE 12 Tonsillectomy FAMILY HISTORY Problem Relation Age of Onset None Mother None Father None Sister None Brother SOCIAL HISTORY[1] REVIEW OF SYMPTOMS: REVIEW OF SYSTEMS: General: The patient denies fatigue, + weight loss, denies weight gain, denies feeling hot, and feelings of cold. Eyes: The patient denies glaucoma, denies eye injury/surgery, denies glasses or contacts. Ear/Nose/Throat: The patient denies allergies, denies hayfever, denies ear infections, and denies bloody noses. Cardiovascular: The patient denies chest pain, denies heart disease, + high blood pressure, denies high cholesterol, and denies poor circulation. Respiratory: The patient denies tuberculosis, denies pneumonia, denies frequent cough, denies shortness of breath, and denies coughing up blood. Gastrointestinal: The patient denies difficulty swallowing, denies acid reflux, denies ulcers, denies jaundice/hepatitis, denies gallbladder problems, denies vomiting, denies black or tarry stools, denies hemorrhoids, denies bleeding from rectum, denies diverticulitis, denies constipation, denies diarrhea, denies loss of stool control, and denies hernias. Kidney/Bladder: The patient denies kidney stones, denies urine infections, and denies bloody urine. Skin: The patient denies a history of skin cancer, denies bleeding/changing moles, and denies a history of skin rash. Neurologic: The patient denies a history of epilepsy/convulsions, denies headaches, denies head/spinal injuries, and denies stroke/TIA. Psychiatric: The patient denies psychiatric medications, denies depression, and denies voices. Endocrine: The patient denies thyroid disorders, + diabetes, and denies hormonal problems. Hematologic: The patient denies a history of bruising, denies bleeding, and denies anemia. Infections: The patient denies a history of measles and mumps, denies rheumatic fever, and denies sexually transmitted diseases. Musculoskeletal: The patient denies back pain/injury, denies back problems, denies sciatica, denies knee/foot trouble, denies arthritis, or denies gout. PHYSICAL EXAMINATION: General: The patient is 54 year old, male well nourished, well hydrated in no acute distress. The patient is oriented to time, place, and person. VITALS: Blood pressure 172/108, pulse 84, resp. rate 14, weight 93.4 kg (205 lb 12.8 oz), SpO2 98%. There is no height or weight on file to calculate BMI. HEENT: Normal cephalic, ataumatic, pupils are equally round, sclera are anicteric, mucous membranes are moist, oropharynx is clear. Neck has no masses or asymmetry . Respiratory: Clear to auscultation. Cardiac: Regular rate and rhythm. Abdominal exam: Soft, nontender, with no palpable masses. No hepatosplenomegaly. No palpable hernias. Extremities: no clubbing or cyanosis LABORATORY VALUES: As Noted RADIOLOGIC STUDIES: As Noted Assessment IMPRESSION: screen for colon cancer PLAN: I have reviewed my findings with the surgeon. Will plan for lower endoscopy. We discussed the risks and benefits of the planned endoscopy in terms understandable to the patient. I have informed the patient that complications can occur including failure to complete the endoscopy and perforation. Saul had the opportunity to ask questions concerning the planned endoscopy. Saul freely consents to surgery. I plan to use miraLAX bowel preparation I have explained to the patient the difference between IV conscious sedation and MAC anesthesia - and I have offered either, according to the patient's wishes. I have explained that with IV conscious sedation there is no anesthesia provider available and therefore there is a limitation of the amount of IV medications that can be given and that the patient may wake up in the middle of the procedure and/or experience pain/discomfort during the procedure. Further discussion was done and the patient was given the opportunity to ask questions and all questions were answered. Saul chooses IV conscious sedation. Saul was counseled that if there are changes in his/her medical condition, to let the office know if surgery should proceed. If there are changes in patient's medical condition from time of this encounter to the day of the procedure that preclude anesthesia, patient may have procedure cancelled for patient's safety. Diagnoses: (Z12.11) Screen for colon cancer (primary encounter diagnosis) Portions of this documentation were copied and pasted from previous office visit notes in order to provide a cohesive continuity of the history. The note has been reviewed and edited and updated as necessary. Isis Nieto APRN.VAMPER [1] Social History Tobacco Use Smoking status: Never Substance Use Topics Alcohol use: No Drug use: No Referring Provider: PAM STINSON [[id number]] Allergies As of Date: 05/06/2025 (No Known Allergies) Date Reviewed: 05/06/2025 Reviewed by: Isis Nieto APRN.VAMPER - Fully Assessed Reason for Visit: Consult [173] Cmt: Due for colonoscopy Primary Visit Diagnosis:Screen for colon cancer [Z12.11] Order(s):COLONOSCOPY SCREENING [GI51] Order #: [id number] FUTURE Prescriptions as of 05/06/2025 - metFORMIN (GLUCOPHAGE) 500 mg tablet Take 500 mg by mouth two times a day with meals. - naproxen 500 mg ORAL tablet Take 1 tablet by mouth twice daily as needed. FOR PAIN. TAKE WITH FOOD. - cyclobenzaprine (FLEXERIL) 10 mg ORAL tablet Take 1 tablet by mouth every 8 hours as needed. FOR PAIN OR SPASMS - multivitamin ORAL tablet Take one(1) tablet daily. Problem List As Of Date 05/06/2025 Noted Resolved Routine medical exam [Z00.00] 08/28/2010 Encounter Status:Closed by ISIS NIETO on 05/06/25 PROGRESS Observed: 05/06/2025 4:00 PM Status: COMPLETED Source: [facility] HNO ID: [id number] Author: ISIS NIETO APRN.VAMPER Service: ? Author Type: Nurse Practitioner Type: Progress Notes Filed: 05/06/2025 16:06 Note Text: HISTORY AND PHYSICAL Saul Bills : 1970 REFERRING PHYSICIAN: Pam Stinson [address] [facility] [address] CHIEF COMPLAINT: Patient presents with: Consult: Due for colonoscopy HPI: Saul is a 54 year old male referred for endoscopy. Saul notes due for screening colonoscopy. Saul denies abdominal pain. Saul denies diarrhea. Saul denies constipation. Saul denies a change in bowel habits. Saul denies melena. Saul denies bright red blood per rectum. Saul notes family history of colon issues. Maternal grandfather with colon cancer Saul denies heartburn. Saul denies dysphagia. Saul has not undergone prior endoscopy. Current Outpatient Medications Medication Sig metFORMIN (GLUCOPHAGE) 500 mg tablet Take 500 mg by mouth two times a day with meals. multivitamin ORAL tablet Take one(1) tablet daily. naproxen 500 mg ORAL tablet Take 1 tablet by mouth twice daily as needed. FOR PAIN. TAKE WITH FOOD. cyclobenzaprine (FLEXERIL) 10 mg ORAL tablet Take 1 tablet by mouth every 8 hours as needed. FOR PAIN OR SPASMS No current facility-administered medications for this visit. ALLERGIES: Patient has no known allergies. No past medical history on file. PAST SURGICAL HISTORY Procedure Laterality Date TONSILLECTOMY PRIMARY/SECONDARY <AGE 12 Tonsillectomy FAMILY HISTORY Problem Relation Age of Onset None Mother None Father None Sister None Brother SOCIAL HISTORY[1] REVIEW OF SYMPTOMS: REVIEW OF SYSTEMS: General: The patient denies fatigue, + weight loss, denies weight gain, denies feeling hot, and feelings of cold. Eyes: The patient denies glaucoma, denies eye injury/surgery, denies glasses or contacts. Ear/Nose/Throat: The patient denies allergies, denies hayfever, denies ear infections, and denies bloody noses. Cardiovascular: The patient denies chest pain, denies heart disease, + high blood pressure, denies high cholesterol, and denies poor circulation. Respiratory: The patient denies tuberculosis, denies pneumonia, denies frequent cough, denies shortness of breath, and denies coughing up blood. Gastrointestinal: The patient denies difficulty swallowing, denies acid reflux, denies ulcers, denies jaundice/hepatitis, denies gallbladder problems, denies vomiting, denies black or tarry stools, denies hemorrhoids, denies bleeding from rectum, denies diverticulitis, denies constipation, denies diarrhea, denies loss of stool control, and denies hernias. Kidney/Bladder: The patient denies kidney stones, denies urine infections, and denies bloody urine. Skin: The patient denies a history of skin cancer, denies bleeding/changing moles, and denies a history of skin rash. Neurologic: The patient denies a history of epilepsy/convulsions, denies headaches, denies head/spinal injuries, and denies stroke/TIA. Psychiatric: The patient denies psychiatric medications, denies depression, and denies voices. Endocrine: The patient denies thyroid disorders, + diabetes, and denies hormonal problems. Hematologic: The patient denies a history of bruising, denies bleeding, and denies anemia. Infections: The patient denies a history of measles and mumps, denies rheumatic fever, and denies sexually transmitted diseases. Musculoskeletal: The patient denies back pain/injury, denies back problems, denies sciatica, denies knee/foot trouble, denies arthritis, or denies gout. PHYSICAL EXAMINATION: General: The patient is 54 year old, male well nourished, well hydrated in no acute distress. The patient is oriented to time, place, and person. VITALS: Blood pressure 172/108, pulse 84, resp. rate 14, weight 93.4 kg (205 lb 12.8 oz), SpO2 98%. There is no height or weight on file to calculate BMI. HEENT: Normal cephalic, ataumatic, pupils are equally round, sclera are anicteric, mucous membranes are moist, oropharynx is clear. Neck has no masses or asymmetry . Respiratory: Clear to auscultation. Cardiac: Regular rate and rhythm. Abdominal exam: Soft, nontender, with no palpable masses. No hepatosplenomegaly. No palpable hernias. Extremities: no clubbing or cyanosis LABORATORY VALUES: As Noted RADIOLOGIC STUDIES: As Noted Assessment IMPRESSION: screen for colon cancer PLAN: I have reviewed my findings with the surgeon. Will plan for lower endoscopy. We discussed the risks and benefits of the planned endoscopy in terms understandable to the patient. I have informed the patient that complications can occur including failure to complete the endoscopy and perforation. Saul had the opportunity to ask questions concerning the planned endoscopy. Saul freely consents to surgery. I plan to use miraLAX bowel preparation I have explained to the patient the difference between IV conscious sedation and MAC anesthesia - and I have offered either, according to the patient's wishes. I have explained that with IV conscious sedation there is no anesthesia provider available and therefore there is a limitation of the amount of IV medications that can be given and that the patient may wake up in the middle of the procedure and/or experience pain/discomfort during the procedure. Further discussion was done and the patient was given the opportunity to ask questions and all questions were answered. Saul chooses IV conscious sedation. Saul was counseled that if there are changes in his/her medical condition, to let the office know if surgery should proceed. If there are changes in patient's medical condition from time of this encounter to the day of the procedure that preclude anesthesia, patient may have procedure cancelled for patient's safety. Diagnoses: (Z12.11) Screen for colon cancer (primary encounter diagnosis) Portions of this documentation were copied and pasted from previous office visit notes in order to provide a cohesive continuity of the history. The note has been reviewed and edited and updated as necessary. Isis Nieto APRN.VAMPER [1] Social History Tobacco Use Smoking status: Never Substance Use Topics Alcohol use: No Drug use: No ALLERGIES DATE TYPE / CODE NAME / CODE REACTION SEVERITY SOURCE Drug Class/[id number](SNO MED CT) NO KNOWN ALLERGIES [facility] ENCOUNTERS ADMIT/DISCHARGE ACCOUNT NUMBER ADMITTING ENCOUNTER CLASS LOC ATION SOURCE 05/06/2025/ [id number] Ambulatory [facility] ing:[facility]GS [facility] PAYERS ENCOUNTER GUARANTOR PAYER SUBSCRIBER SOURCE 05/06/2025 Primary Insurance:BLUE CARD PPO OOSPolicy Number: [id number] kamille Date:[id number] Name:Kailey Mims CLAUDETTERTHDOB: [id number] [place] [address] [facility]
--- OUTSIDE RECORDS SUMMARY | 2025-05-06 15:42 | XMS RPT_ITS ---
Author Name Auto Generated Organization [facility] Care Team Providers Care Dairy Manager Name Role Phone PAM STINSON Referring UnavailISIS [place] Attending Unavailable PROBLEMS DATE TYPE CONDITION / CODE ATTENDING STATUS QUITA RCE 05/06/2025 Active Screen for colon cancer / Z12.11(ICD-10) ISIS NIETO Active [facility] PROCEDURES No Procedure Records Found RESULTS CNOV Observed: 05/06/2025 4:00 PM Status: COMPLETED Source: [facility] Office Visit (GENSWS) SAUL BILLS ([id number]) 1970 Date Time Provider Department 05/06/25 4:00 PM ISIS NIETO GENLESIA During your visit today, we recorded the following information about you: Pulse Respiration Blood pressure Weight 84/minute 14/minute 172/108 93.4 kg Isis Nieto APRN.CNP 05/06/2025 4:06 PM Signed HISTORY AND PHYSICAL Saul Prasanna Leslie : 1970 REFERRING PHYSICIAN: Pam Stinson [address] [facility] [id number] CHIEF COMPLAINT: Patient presents with: Consult: Due [...] edited and updated as necessary. Isis Nieto APRN.WAFER FABRICATION TECHNICIAN [1] Social History Tobacco Use Smoking status: Never Substance Use Topics Alcohol use: No Drug use: No Referring Provider: PAM STINSON [[id number]] Allergies As of Date: 05/06/2025 (No Known Allergies) Date Reviewed: 05/06/2025 Reviewed by: Isis Nieto APRN.WAFER FABRICATION TECHNICIAN - Fully Assessed Reason for Visit: Consult [173] Cmt: Due for colonoscopy Primary Visit Diagnosis:Screen for colon cancer [Z12.11] Order(s):COLONOSCOPY SCREENING [GI51] Order #: [id number] FUTURE Prescriptions as of 05/06/2025 - metFORMIN [...] Observed: 05/06/2025 4:00 PM Status: COMPLETED Source: [facility] HNO ID: [id number] Author: ISIS NIETO APRN.WAFER FABRICATION TECHNICIAN Service: ? Author Type: Nurse Practitioner Type: Progress Notes Filed: 05/06/2025 16:06 Note Text: HISTORY AND PHYSICAL Saul Bills : 1970 REFERRING PHYSICIAN: Pam Stinson [address] [facility] [address] CHIEF COMPLAINT: Patient presents with: Consult: Due [...] edited and updated as necessary. Isis Nieto APRN.WAFER FABRICATION TECHNICIAN [1] Social History Tobacco Use Smoking status: Never Substance Use Topics Alcohol use: No Drug use: No ALLERGIES DATE TYPE / CODE NAME / CODE REACTION SEVERITY SOURCE Drug Class/[id number](SNO MED CT) NO KNOWN ALLERGIES [facility] ENCOUNTERS ADMIT/DISCHARGE ACCOUNT NUMBER ADMITTING ENCOUNTER CLASS LOC ATION SOURCE 05/06/2025/ [id number] [facility] ing:[facility] PAYERS ENCOUNTER GUARANTOR PAYER SUBSCRIBER SOURCE 05/06/2025 Primary Insurance:BLUE CARD PPO OOSPolicy Number: [id number] kamille Date:[id number] Name:Kailey Mims CLAUDETTERTHDOB: [id number] [place] [address] [facility]
[2025-05-06 17:56] LABS: Hematocrit 40.1 % (40-54); Hemoglobin 13.6 g/dL (13.0-16.5); Immature Granulocytes Count 0.010 X10^3/uL (0.0-0.0); Mean Corp Hgb Conc 33.9 g/dL (32-36); Mean Corpuscular Volume 89.5 fL (80-94); NRBC Flagged by Analyzer 0 % (0-5); POSITIVE COUNT YES; RBC Distribution Width CV 13.0 % (11.6-14.6); RBC Distribution Width SD 42.3 fl (35.1-43.9); Red Blood Count 4.48 M/mm3 (4.6-6.2); White Blood Count 6.5 K/mm3 (4.4-11.0)
[2025-05-06 18:34] LABS: PSA,Total- Diagnostic 7.44 ng/mL (0.00-4.00)
[2025-05-06 18:36] LABS: AST(SGOT) 29 U/L (<=37); Alanine Aminotransfer ALT/SGPT 15 U/L (<=46); Albumin, Serum 4.1 g/dL (3.5-5.0); Alkaline Phosphatase 93 U/L (40-129); Anion Gap 15 (5-15); BUN 17 mg/dL (4-19); BUN/Creat Ratio 20.1 RATIO (10-20); Calcium,Total 9.3 mg/dL (7.6-11.0); Carbon Dioxide 22.9 mmol/L (21.0-32.0); Chloride 103 mmol/L (98-108); Globulin 3.0 g/dL (2.2-4.2); Glucose 143 mg/dL (70-99); Potassium 3.8 mmol/L (3.3-5.1)
[2025-05-06 20:03] LABS: Differential Indicated SCAN CRITERIA MET
[2025-05-06 20:04] LABS: Differential Comment SCANNED
== END | disposition home or self-care (01) ==
LOC: MTLAB 16:18
PROVIDERS: PCP Nurse Practitioner Family
DX: E87.6 Hypokalemia (principal)
CPT/HCPCS: 36415; 80053; 84153; 85025

== ENCOUNTER → 2025-05-14 | Outpatient (CLI) | payer BC, SELFPAY ==
[2025-05-16 13:08] LABS: PSA, Free 1.37 ng/mL; PSA, Free % 19.1 % (.); PSA, Total Ultrasensitive 7.160 ng/mL (0.000-4.000)
== END | disposition home or self-care (01) ==
PROVIDERS: PCP Nurse Practitioner Family; Referring Provider Urology; Visit Provider Urology
DX: R97.20 Elevated prostate specific antigen [PSA] (principal)
CPT/HCPCS: 36415; 84153; 84154

== ENCOUNTER → 2025-05-28 | Outpatient (CLI) | payer BC, SELFPAY ==
[2025-05-28 19:59] LABS: Hematocrit 38.8 % (40-54); Hemoglobin 13.3 g/dL (13.0-16.5); Immature Granulocytes Count 0.010 X10^3/uL (0.0-0.0); Mean Corp Hgb Conc 34.3 g/dL (32-36); Mean Corpuscular Volume 88.6 fL (80-94); Mean Platelet Vol. 9.4 fl (6.2-12.0); NRBC Flagged by Analyzer 0 % (0-5); Platelet Count 250 K/mm3 (150-450); RBC Distribution Width CV 13.1 % (11.6-14.6); RBC Distribution Width SD 42.7 fl (35.1-43.9); Red Blood Count 4.38 M/mm3 (4.6-6.2); White Blood Count 5.8 K/mm3 (4.4-11.0)
[2025-05-28 20:40] LABS: AST(SGOT) 20 U/L (<=37); Alanine Aminotransfer ALT/SGPT 17 U/L (<=46); Albumin, Serum 4.2 g/dL (3.5-5.0); Alkaline Phosphatase 83 U/L (40-129); Anion Gap 13 (5-15); BUN 18 mg/dL (4-19); BUN/Creat Ratio 17.9 RATIO (10-20); Calcium,Total 9.3 mg/dL (7.6-11.0); Carbon Dioxide 28.7 mmol/L (21.0-32.0); Chloride 100 mmol/L (98-108); Ferritin 460 ng/mL (37-417); Globulin 2.9 g/dL (2.2-4.2); Glucose 125 mg/dL (70-99); Potassium 3.0 mmol/L (3.3-5.1)
[2025-05-28 23:33] LABS: Iron Binding Capacity,Unsat 216 ug/dL (228-428)
[2025-05-31 17:45] LABS: Iron 62 ug/dL (65-175)
== END | disposition home or self-care (01) ==
LOC: VSLAB 16:19
PROVIDERS: PCP Nurse Practitioner Family; Visit Provider Nurse Practitioner Family
DX: E87.6 Hypokalemia (principal); D50.9 Iron deficiency anemia, unspecified
CPT/HCPCS: 36415; 80053; 82728; 83540; 83550; 85025

== ENCOUNTER → 2025-06-03 | Outpatient (CLI) | payer BC, SELFPAY ==
--- NOTE | 2025-06-03 13:22 | MRI_ITS ---
EXAM: PELVIS W/WO CONTRAST 06/03/2025 CLINICAL HISTORY: ELEVATED PSA. TECHNIQUE: Procedure Code: [id number] Modality: MR Procedure: PELVIS W/WO CONTRAST Multiplanar and multisequence images were obtained without and with intravenous gadolinium contrast. CONTRAST: Clariscan VOLUME: 19 mL COMPARISON: None FINDINGS: Image quality:Diagnostic PSA:7.44ng/mL Prostate size: 7.2 x 5.1 x 5.6cms Prostate volume: 107.67mL PSA density:0.069 ng/mLï¿½ Prostate Transition zone: PI-RADS 2 findings. Benign prostatic hyperplasia. Well encapsulated nodules. No suspicious abnormality. No restricted diffusion or abnormal pattern of enhancement. *Lesion 1: 11 millimeter nodule within the anterior right transitional zone at the midportion of the gland best seen on ADC map image 13 of series 7. No distinct encapsulation. Homogeneous T2 signal similar to adjacent nodules. No significant enhancement above background.. *T2 score: 2; mostly encapsulated nodule or a homogeneous circumscribed nodule without encapsulation, or a homogeneous mildly hypointense area between nodules. *DWI score: 4; focal, marked hypointensity on ADC and marked hyperintensity on high b-value DWI; <1.5 cm. *DCE: Negative. *Overall PI-RADS: PI-RADS 2. *Extracapsular extension:No gross extracapsular extension. Peripheral Zone: Background changes of likely prostatitis (PI-RADS 2). No suspicious nodule *Lesion 1: None. *T2 score: 1. *DWI score: 1; no abnormality on ADC or high b-value DWI. *DCE: Negative. *Overall PI-RADS: 1. *Extracapsular extension:No gross extracapsular extension. Neurovascular bundles: Unremarkable. Seminal vesicles: Unremarkable. Bladder: Bladder diverticulum arising from the posterior right wall. Lymph nodes: Unremarkable. Bones: No destructive or frankly suspicious bony lesions identified on nondedicated evaluation. Mild tendinosis at the insertion of the hamstrings bilaterally. Other: Fat containing right inguinal hernia. MRI/Pelvis W/WO Contrast IMPRESSION: Prostatomegaly with benign prostatic hyperplasia. 11 millimeter nodule in the anterior right transitional zone, midgland, with a background on benign prostatic hyperplasia with no distinct encapsulation. The lesion demonstrates no significant enhancement abo ve background and only mild restricted diffusion. PI-RADS 2. Reading Location: [place]
== END | disposition home or self-care (01) ==
PROVIDERS: PCP Nurse Practitioner Family; Referring Provider Urology; Visit Provider Urology
DX: R97.20 Elevated prostate specific antigen [PSA] (principal)
CPT/HCPCS: 72197; A9575; A4216

== ENCOUNTER → 2025-07-23 | Outpatient (CLI) | payer BC, SELFPAY ==
[2025-07-23 17:43] LABS: Hematocrit 40.2 % (40-54); Hemoglobin 14.2 g/dL (13.0-16.5); Immature Granulocytes Count 0.010 X10^3/uL (0.0-0.0); Mean Corp Hgb Conc 35.3 g/dL (32-36); Mean Corpuscular Volume 87.2 fL (80-94); Mean Platelet Vol. 9.3 fl (6.2-12.0); NRBC Flagged by Analyzer 0 % (0-5); Platelet Count 254 K/mm3 (150-450); RBC Distribution Width CV 12.8 % (11.6-14.6); RBC Distribution Width SD 40.3 fl (35.1-43.9); Red Blood Count 4.61 M/mm3 (4.6-6.2); White Blood Count 5.8 K/mm3 (4.4-11.0)
[2025-07-23 18:10] LABS: AST(SGOT) 17 U/L (<=37); Alanine Aminotransfer ALT/SGPT 16 U/L (<=46); Albumin, Serum 4.3 g/dL (3.5-5.0); Alkaline Phosphatase 91 U/L (40-129); Anion Gap 12 (5-15); BUN 13 mg/dL (4-19); BUN/Creat Ratio 16.9 RATIO (10-20); Calcium,Total 9.5 mg/dL (7.6-11.0); Carbon Dioxide 30.6 mmol/L (21.0-32.0); Chloride 100 mmol/L (98-108); Ferritin 453 ng/mL (37-417); Globulin 2.8 g/dL (2.2-4.2); Glucose 139 mg/dL (70-99); Iron 78 ug/dL (65-175); Iron Binding Capacity,Total 278 ug/dL (250-450); Iron Binding Capacity,Unsat 200 ug/dL (228-428); Potassium 3.0 mmol/L (3.3-5.1)
--- OUTSIDE RECORDS SUMMARY | 2025-07-23 20:28 | XMS RPT_ITS | CCD ---
Author Organization [facility] Inform ion Partnership [employer]STRUCTION [employer] [facility] Care Team Providers Care Fruit Stuffer Name Role Phone Shantell COOPERAGE SHOP SUPERVISOR-C, Isabel Primary Care Physician Shantell COOPERAGE SHOP SUPERVISOR-C, Isabel Attending Physician Shantell COOPERAGE SHOP SUPERVISOR-C, Isabel Referring Provider Alexandru Lee MD Attending Physician Alexandru Lee MD Emergency Department Physician Beam COOPERAGE SHOP SUPERVISOR-C, Terrence Attending Physician Beam COOPERAGE SHOP SUPERVISOR-C, Zebubarry Referring Provider [phone] ISIS NIETO Attending Unavailable ISABEL STINSON Referring Unavailabl PJ Knight Attending Unavailable ISIS NIETO Referring Unavailable Beam VSCTerrence Attending Unavailable Beam VSC, Terrence Referring Unavailable Shantell Isabel Primary Care Unavailable Brad Maravilla Attending Unavailable Brad Maravilla Referring Unavailable Isabel Stinson Primary Care Unavailable Isabel Stinson Attending Unavailable Shantell Isabel Primary Care Unavailable Dariushomal, Isabel Primary Care Unavailable RenitaBrad Attending Unavailable RenitaBrad Referring Unavailable ReodicAlexandru viveros Attending Unavailable Shantell Isabel Primary Care Unavailable Shantell Isabel Primary Care Unavailable Isabel Stinson Attending Unavailable Isabel Stinson Referring Unavailable Medications Current Medications Medication Drug Class(es) Dates Sig (Normalized) Sig (Original) microencapsulated potassium chloride 20 meq extended release oral tablet (2 sources) Start: 05-01-2025 Problems Problem Classification Problem Date Documented Da te Episodic/Chronic Fluid and electrolyte disorders (3 sources) Hypokalemia; Translations: [Hypokalemia] Onset: 06-06-2025 05-01-2025 Episodic Other screening for suspected conditions (not mental disorders or infectious disease) (5 sources) Encounter for screening for malignant neoplasm of colon; Translations: [Elevated prostate specific antigen [PSA]] Onset: 05-06-2025 Episodic Syncope (4 sources) Syncope; Translations: [Syncope and collapse] 12-25-2020 Episodic Results Test Name Value Interpretation Reference Range Facility Pelvis W/WO Contraston 06-03 Pelvis W/WO Contrast [facility] Imaging Services [address] [place] [address] Pelvis W/WO Contrast MR#: [id number] Acct: [id number] Name: PJ BILLS Rep #: [id number] : 1970 M 55 From: Ramos dumont MD PCP: FAVIOLA Gomez Status: REG CLI Study: Pelvis W/WO Contrast Date of Exam: 06/03/25 Exam# [id number] Ordering Dr: Brad Maravilla MD EXAM: PELVIS W/WO CONTRAST 06/03/2025 CLINICAL HISTORY: ELEVATED PSA. TECHNIQUE: Procedure Code: [id number] Modality: MR Procedure: PELVIS W/WO CONTRAST Multiplanar and multisequence images were obtained without and with intravenous gadolinium contrast. CONTRAST: Clariscan VOLUME: 19 mL COMPARISON: None FINDINGS: Image quality:Diagnostic PSA:7.44ng/mL Prostate size: 7.2 x 5.1 x 5.6cms Prostate volume: 107.67mL PSA density:0.069 ng/mL??? Prostate Transition zone: PI-RADS 2 findings. Benign prostatic hyperplasia. Well encapsulated nodules. No suspicious abnormality. No restricted diffusion or abnormal pattern of enhancement. *Lesion 1: 11 millimeter nodule within the anterior right transitional zone at the midportion of the gland best seen on ADC map image 13 of series 7. No distinct encapsulation. Homogeneous T2 signal similar to adjacent nodules. No significant enhancement above background.. *T2 score: 2; mostly encapsulated nodule or a homogeneous circumscribed nodule without encapsulation, or a homogeneous mildly hypointense area between nodules. *DWI score: 4; focal, marked hypointensity on ADC and marked hyperintensity on high b-value DWI; <1.5 cm. *DCE: Negative. *Overall PI-RADS: PI-RADS 2. *Extracapsular extension:No gross extracapsular extension. Peripheral Zone: Background changes of likely prostatitis (PI-RADS 2). No suspicious nodule *Lesion 1: None. *T2 score: 1. *DWI score: 1; no abnormality on ADC or high b-value DWI. *DCE: Negative. *Overall PI-RADS: 1. *Extracapsular extension:No gross extracapsular extension. Neurovascular bundles: Unremarkable. Seminal vesicles: Unremarkable. Bladder: Bladder diverticulum arising from the posterior right wall. Lymph nodes: Unremarkable. Bones: No destructive or frankly suspicious bony lesions identified on nondedicated evaluation. Mild tendinosis at the insertion of the hamstrings bilaterally. Other: Fat containing right inguinal hernia. MRI/Pelvis W/WO Contrast IMPRESSION: Prostatomegaly with benign prostatic hyperplasia. 11 millimeter nodule in the anterior right transitional zone, midgland, with a background on benign prostatic hyperplasia with no distinct encapsulation. The lesion demonstrates no significant enhancement above background and only mild restricted diffusion. PI-RADS 2. Reading Location: [id number] CC: FAVIOLA Stinson; Dr. Brad Maravilla MD Product Assembler: Signed Normal [facility] Ironon 05-31-2025 Iron [Mass/Vol] 62 ug/dL Low 65-175 [facility] Comment on above: Performed By: #### L 503.6030, L503.6550, L501.9520, L506.0400, L501.30725, L500.4050, L3300.6900, L500.4100, L100.0100 #### [facility] [address] [place], [address] CBC W/Diff, Automatedon 05-09 Absolute Lymph 2.04 X10 3/uL Normal 0.83-4.51 [facility] Comment on above: Performed By: #### L 503.6030, L503.6550, L501.9520, L506.0400, L501.93549, L500.4050, L3300.6900, L500.4100, L100.0100 #### [facility] [address] [facility] [place], [place], [id number] [phone] Absolute Neut 3.0 X10 3/uL Normal 2.0-7.7 [facility] Comment on above: Performed By: #### L 503.6030, L503.6550, L501.9520, L506.0400, L501.18650, L500.4050, L3300.6900, L500.4100, L100.0100 #### [facility] [address] [facility] [place], [address] ( Basophils/100 WBC (Bld) 0.7 % Normal 0-1 [facility] Comment on above: Performed By: #### L 503.6030, L503.6550, L501.9520, L506.0400, L501.31674, L500.4050, L3300.6900, L500.4100, L100.0100 #### [facility] [address] [facility] [place], [address] ([phone] Eosinophils/100 WBC (Bld) 2.2 % Normal 0-5 [facility] Comment on above: Performed By: #### L 503.6030, L503.6550, L501.9520, L506.0400, L501.73615, L500.4050, L3300.6900, L500.4100, L100.0100 #### [facility] [address] [facility] [place], [address] (403 Erythrocyte distribution width (RBC) [Ratio] 13.1 % Normal 11.6-14.6 [facility] Comment on above: Performed By: #### L 503.6030, L503.6550, L501.9520, L506.0400, L501.48202, L500.4050, L3300.6900, L500.4100, L100.0100 #### [facility] [address] [place], [address] Hematocrit (Bld) [Volume fraction] 38.8 % Low 40-54 [facility] Comment on above: Performed By: #### L 503.6030, L503.6550, L501.9520, L506.0400, L501.74569, L500.4050, L3300.6900, L500.4100, L100.0100 #### [facility] [address] [place], [address] Hemoglobin (Bld) [Mass/Vol] 13.3 g/dL Normal 13.0-16.5 [facility] Comment on above: Performed By: #### L 503.6030, L503.6550, L501.9520, L506.0400, L501.18730, L500.4050, L3300.6900, L500.4100, L100.0100 #### [facility] [address] [place], [address] IG% 0.200 Normal 0.0-0.9 [facility] Comment on above: Result Comment: IG% - Immature Granulocytes (promyelocytes, myelocytes and metamyelocytes) > 1% indicates that a LEFT SHIFT is Present. Performed By: #### L 503.6030, L503.6550, L501.9520, L506.0400, L501.43269, L500.4050, L3300.6900, L500.4100, L100.0100 #### [facility] [address] [place], [address] Lymphocytes/100 WBC (Bld) 35.1 % Normal 19-41 [facility] Comment on above: Performed By: #### L 503.6030, L503.6550, L501.9520, L506.0400, L501.08648, L500.4050, L3300.6900, L500.4100, L100.0100 #### [facility] [address] [place], [address] MCH (RBC) [Entitic mass] 30.4 pg Normal 27.0-32.0 [facility] Comment on above: Performed By: #### L 503.6030, L503.6550, L501.9520, L506.0400, L501.20880, L500.4050, L3300.6900, L500.4100, L100.0100 #### [facility] [address] [place], [address] MCHC (RBC) [Mass/Vol] 34.3 g/dL Normal 32-36 [facility] Comment on above: Performed By: #### L 503.6030, L503.6550, L501.9520, L506.0400, L501.01154, L500.4050, L3300.6900, L500.4100, L100.0100 #### [facility] [address] [place], [address] MCV (RBC) [Entitic vol] 88.6 fL Normal 80-94 [facility] Comment on above: Performed By: #### L 503.6030, L503.6550, L501.9520, L506.0400, L501.48573, L500.4050, L3300.6900, L500.4100, L100.0100 #### [facility] [address] [place], [address] Monocytes/100 WBC (Bld) 10.0 % Normal 0-10 [facility] Comment on above: Performed By: #### L 503.6030, L503.6550, L501.9520, L506.0400, L501.76538, L500.4050, L3300.6900, L500.4100, L100.0100 #### [facility] [address] [place], [address] Neutrophils/100 WBC (Bld) 51.8 % Normal 47-70 [facility] Comment on above: Performed By: #### L 503.6030, L503.6550, L501.9520, L506.0400, L501.07028, L500.4050, L3300.6900, L500.4100, L100.0100 #### [facility] [address] [place], [address] Nucleated RBC (Bld) [#/Vol] 0 10*3/uL Normal 0-5 [facility] Comment on above: Performed By: #### L 503.6030, L503.6550, L501.9520, L506.0400, L501.89083, L500.4050, L3300.6900, L500.4100, L100.0100 #### [facility] [address] [facility] [place], [address] Platelet mean volume (Bld) [Entitic vol] 9.4 fL Normal 6.2-12.0 [facility] Comment on above: Performed By: #### L 503.6030, L503.6550, L501.9520, L506.0400, L501.59243, L500.4050, L3300.6900, L500.4100, L100.0100 #### [facility] [address] [facility] [place], [address] Platelets (Bld) [#/Vol] 250 10*3/uL Normal 150-450 [facility] Comment on above: Performed By: #### L 503.6030, L503.6550, L501.9520, L506.0400, L501.78913, L500.4050, L3300.6900, L500.4100, L100.0100 #### [facility] [address] [facility] [place], [address] RBC (Bld) [#/Vol] 4.38 10*6/uL Low 4.6-6.2 [facility] Comment on above: Performed By: #### L 503.6030, L503.6550, L501.9520, L506.0400, L501.54279, L500.4050, L3300.6900, L500.4100, L100.0100 #### [facility] [address] [place], [address] (304) RDW SD 42.7 fl Normal 35.1-43.9 [facility] Comment on above: Performed By: #### L 503.6030, L503.6550, L501.9520, L506.0400, L501.66872, L500.4050, L3300.6900, L500.4100, L100.0100 #### [facility] [address] [place], [address] WBC (Bld) [#/Vol] 5.8 10*3/uL Normal 4.4-11.0 [facility] Comment on above: Performed By: #### L 503.6030, L503.6550, L501.9520, L506.0400, L501.05228, L500.4050, L3300.6900, L500.4100, L100.0100 #### [facility] [address] [place], [address] Comprehensive Metabolic [facility] 05-28-2025 Albumin [Mass/Vol] 4.2 g/dL Normal 3.5-5.0 [facility] Comment on above: Performed By: #### L 503.6030, L503.6550, L501.9520, L506.0400, L501.59606, L500.4050, L3300.6900, L500.4100, L100.0100 #### [facility] [address] [place], [address] Albumin/Globulin [Mass ratio] 1.4 {ratio} Normal 0.9-2.4 [facility] Comment on above: Performed By: #### L 503.6030, L503.6550, L501.9520, L506.0400, L501.64530, L500.4050, L3300.6900, L500.4100, L100.0100 #### [facility] [address] [place], [place], [phone] (461) ALK PHOS 83 U/L Normal 40-129 [facility] Comment on above: Performed By: #### L 503.6030, L503.6550, L501.9520, L506.0400, L501.71239, L500.4050, L3300.6900, L500.4100, L100.0100 #### [facility] [address] [place], [place], [phone] (385) ALT [Catalytic activity/Vol] 17 U/L Normal <=46 [facility] Comment on above: Performed By: #### L 503.6030, L503.6550, L501.9520, L506.0400, L501.95211, L500.4050, L3300.6900, L500.4100, L100.0100 #### [facility] [address] [place], [address] AST [Catalytic activity/Vol] 20 U/L Normal <=37 [facility] Comment on above: Performed By: #### L 503.6030, L503.6550, L501.9520, L506.0400, L501.44248, L500.4050, L3300.6900, L500.4100, L100.0100 #### [facility] [address] [place], [address] Bilirubin [Mass/Vol] 0.73 mg/dL Normal 0.00-1.30 [facility] Comment on above: Performed By: #### L 503.6030, L503.6550, L501.9520, L506.0400, L501.23005, L500.4050, L3300.6900, L500.4100, L100.0100 #### [facility] [address] [place], [address] BUN/CRE 17.9 RATIO Normal 10-20 [facility] Comment on above: Performed By: #### L 503.6030, L503.6550, L501.9520, L506.0400, L501.36627, L500.4050, L3300.6900, L500.4100, L100.0100 #### [facility] [address] [place], [address] Calcium [Mass/Vol] 9.3 mg/dL Normal 7.6-11.0 [facility] Comment on above: Performed By: #### L 503.6030, L503.6550, L501.9520, L506.0400, L501.16773, L500.4050, L3300.6900, L500.4100, L100.0100 #### [facility] [address] [place], [address] Chloride [Moles/Vol] 100 mmol/L Normal 98-108 [facility] Comment on above: Performed By: #### L 503.6030, L503.6550, L501.9520, L506.0400, L501.03553, L500.4050, L3300.6900, L500.4100, L100.0100 #### [facility] [address] [place], [address] CO2 [Moles/Vol] 28.7 mmol/L Normal 21.0-32.0 [facility] Comment on above: Performed By: #### L 503.6030, L503.6550, L501.9520, L506.0400, L501.60632, L500.4050, L3300.6900, L500.4100, L100.0100 #### [facility] [address] [place], [place], [phone] (688) Creatinine [Mass/Vol] 1.00 mg/dL Normal 0.70-1.20 [facility] Comment on above: Performed By: #### L 503.6030, L503.6550, L501.9520, L506.0400, L501.02196, L500.4050, L3300.6900, L500.4100, L100.0100 #### [facility] [address] [place], [place], [id number] (615) GAP 13 Normal 5-15 [facility] Comment on above: Performed By: #### L 503.6030, L503.6550, L501.9520, L506.0400, L501.21041, L500.4050, L3300.6900, L500.4100, L100.0100 #### [facility] [address] [place], [place], [id number] GFR/1.73 sq M.predicted among non-blacks MDRD (S/P/Bld) [Vol rate/Area] 89 mL/min/{1.73_m2} Normal >60 [facility] Comment on above: Result Comment: mL/m in/1.73m2 CKD-EPI Creatinine Equation (2020) Performed By: #### L 503.6030, L503.6550, L501.9520, L506.0400, L501.76950, L500.4050, L3300.6900, L500.4100, L100.0100 #### [facility] [address] [place], [place], [phone] (851) Globulin (S) [Mass/Vol] 2.9 g/dL Normal 2.2-4.2 [facility] Comment on above: Performed By: #### L 503.6030, L503.6550, L501.9520, L506.0400, L501.83653, L500.4050, L3300.6900, L500.4100, L100.0100 #### [facility] [address] [place], [place], [id number] Glucose [Mass/Vol] 125 mg/dL High 70-99 [facility] Comment on above: Performed By: #### L 503.6030, L503.6550, L501.9520, L506.0400, L501.68474, L500.4050, L3300.6900, L500.4100, L100.0100 #### [facility] [address] [place], [place], [id number] Potassium [Moles/Vol] 3.0 mmol/L Low 3.3-5.1 [facility] Comment on above: Performed By: #### L 503.6030, L503.6550, L501.9520, L506.0400, L501.12598, L500.4050, L3300.6900, L500.4100, L100.0100 #### [facility] [address] [place], [place], [phone] Sodium [Moles/Vol] 142 mmol/L Normal 133-145 [facility] Comment on above: Performed By: #### L 503.6030, L503.6550, L501.9520, L506.0400, L501.56518, L500.4050, L3300.6900, L500.4100, L100.0100 #### [facility] [address] [place], [place], [phone] (179) T PROT 7.0 g/dL Normal 5.9-8.4 [facility] Comment on above: Performed By: #### L 503.6030, L503.6550, L501.9520, L506.0400, L501.94848, L500.4050, L3300.6900, L500.4100, L100.0100 #### [facility] [address] [place], [address] Urea nitrogen [Mass/Vol] 18 mg/dL Normal 4-19 [facility] Comment on above: Performed By: #### L 503.6030, L503.6550, L501.9520, L506.0400, L501.42466, L500.4050, L3300.6900, L500.4100, L100.0100 #### [facility] [address] [place], [address] Ferritinon 05-28-2025 Ferritin [Mass/Vol] 460 ng/mL High 37-417 [facility] Comment on above: Performed By: #### L 503.6030, L503.6550, L501.9520, L506.0400, L501.26847, L500.4050, L3300.6900, L500.4100, L100.0100 #### [facility] [address] [place], [address] L503.6080on 05-28-2025 UIBC 216 ug/dL Low 228-428 [facility] Comment on above: Performed By: #### L 503.6030, L503.6550, L501.9520, L506.0400, L501.56524, L500.4050, L3300.6900, L500.4100, L100.0100 #### [facility] [address] [place], [address] PSA Total+%Freeon 05-16-2025 PSA, FREE 1.37 ng/mL Normal N/A [facility] Comment on above: Result Comment: Isabela BAILEY methodology. Performed By: #### L 503.6030, L503.6550, L501.9520, L506.0400, L501.35220, L500.4050, L3300.6900, L500.4100, L100.0100 #### [facility] [address] [place], [address] PSA, FREE % 19.1 Normal . [facility] Comment on above: Result Comment: The table below lists the probability of prostate cancer for men with non-suspicious GRACY results and total PSA between 4 and 10 ng/mL, by patient age (Bailey et al, TAMMY 1998, 279:1542). % Free PSA 50-64 yr 65-75 yr 0.00-10.00% 56% 55% 10.01-15.00% 24% 35% 15.01-20.00% 17% 23% 20.01-25.00% 10% 20% >25.00% 5% 9% Please note: Bailey et al did not make specific recommendations regarding the use of percent free PSA for any other population of men. Performed at: [address] [id number] [employer]: Harry Aguirre PhD, Phone: [phone] Performed By: #### L 503.6030, L503.6550, L501.9520, L506.0400, L501.28110, L500.4050, L3300.6900, L500.4100, L100.0100 #### [facility] [address] [place], [address] PSA, TOTAL ULTR 7.160 ng/mL Abnormal 0.000-4.000 [facility] Comment on above: Result Comment: Isabela BAILEY methodology. According to the [employer], Serum PSA should decrease and remain at undetectable levels after radical prostatectomy. The AUA defines biochemical recurrence as an initial PSA value 0.200 ng/mL or greater followed by a subsequent confirmatory PSA value 0.200 ng/mL or greater. Values obtained with different assay methods or kits cannot be used interchangeably. Results cannot be interpreted as absolute evidence of the presence or absence of malignant disease. Performed By: #### L 503.6030, L503.6550, L501.9520, L506.0400, L501.18634, L500.4050, L3300.6900, L500.4100, L100.0100 #### [facility] [address] [place], [address] Absolute lymphocyte countOrd ered By: Zebulun Beam on 05-06-2025 Lymphocytes Auto (Unsp spec) [#/Vol] 2.20 10*3/uL 0.83-4.51 [facility] Absolute neutrophil countOrd ered By: bulun Beam on 05-06-2025 Neutrophils (Bld) [#/Vol] 3.4 10*3/uL 2.0-7.7 [facility] Anion gap in Serum or Plasma Ordered By: bulun Beam on 05-06-2025 Anion gap [Moles/Vol] 15 mmol/L 5- [facility] Automated lymphocyte count a s percentage of total leukocytesOrdered By: bulun Beam on 05-06-2025 Lymphocytes/100 WBC Auto (Unsp spec) 34.1 % - [facility] BUN/creatinine ratioOrdered By: [facility] Caren Beam on 05-06-2025 Urea nitrogen/Creatinine [Mass ratio] 20.1 mg/mg High 10- [facility] Basophil percentageOrdered B y: [facility] Caren Beam on 05-06-2025 Basophils/100 WBC (Bld) 0.8 % 0-1 [facility] Bilirubin, totalOrdered By: [facility] Caren Beam on 05-06-2025 Bilirubin [Mass/Vol] 0.51 mg/dL 0.00-1.30 [facility] Blood manual differential co mment interpretation (narrative result)Ordered By: Zebulun Beam on 05-06-2025 Manual differential comment Mil (Bld) [Interp] SCANNED [facility] CBC W/Diff, Automatedon 04-09 PLT EST ADEQUATE Normal ADEQ [facility] Comment on above: Performed By: #### L 503.6030, L503.6550, L501.9520, L506.0400, L501.82748, L500.4050, L3300.6900, L500.4100, L100.0100 #### [facility] [address] [place], [address] SMEAR COMMENT SCANNED Normal [facility] Comment on above: Performed By: #### L 503.6030, L503.6550, L501.9520, L506.0400, L501.50916, L500.4050, L3300.6900, L500.4100, L100.0100 #### [facility] [address] [place], [address] CNOVon 05-06-2025 CNOV Office Visit (GENSWS ) -------- JAVIER BILLS ([id number]) 1970 Date Time Provider Department 05/06/25 4:00 PM ISIS NIETO During your visit today, we recorded the following information about you: Pulse Respiration Blood pressure Weight 84/minute 14/minute 172/108 93.4 kg Isis Nieto APRN.CNP 05/06/2025 4:06 PM Signed HISTORY AND PHYSICAL Javier Dalila Leslie : 1970 REFERRING PHYSICIAN: Isabel Stinson [address] [facility] [address] CHIEF COMPLAINT: Patient presents with: Consult: Due for colonoscopy HPI: Javier is a 54 year old male referred for endoscopy. Javier notes due for screening colonoscopy. Javier denies abdominal pain. Javier denies diarrhea. Javier denies constipation. Javier denies a change in bowel habits. Javier denies melena. Javier denies bright red blood per rectum. Javier notes family history of colon issues. Maternal grandfather with colon cancer Javier denies heartburn. Javier denies dysphagia. Javier has not undergone prior endoscopy. Current Outpatient [...] SURGICAL HISTORY Procedure Laterality Date TONSILLECTOMY PRIMARY/SECONDARY Tonsillectomy FAMILY HISTORY Problem Relation Age of [...] occur including failure to complete the endoscopy (more content not included)... Normal [facility] Carbon dioxide, total [Moles /volume] in Central venous bloodOrdered By: Terrence Ribeiro on 05-06-2025 CO2 [Moles/Vol] 22.9 mmol/L 21.0-32.0 [facility] Chloride assayOrdered By: Orlando Ribeiro on 05-06-2025 Chloride [Moles/Vol] 103 mmol/L 98-108 [facility] Comprehensive Metabolic Prof ilon 05-06-2025 Albumin [Mass/Vol] 4.1 g/dL Normal 3.5-5.0 [facility] Comment on above: Performed By: #### L 503.6030, L503.6550, L501.9520, L506.0400, L501.58518, L500.4050, L3300.6900, L500.4100, L100.0100 #### [facility] [address] [place], [address] Albumin/Globulin [Mass ratio] 1.4 {ratio} Normal 0.9-2.4 [facility] Comment on above: Performed By: #### L 503.6030, L503.6550, L501.9520, L506.0400, L501.31376, L500.4050, L3300.6900, L500.4100, L100.0100 #### [facility] [address] [place], [address] ALK PHOS 93 U/L Normal 40-129 [facility] Comment on above: Performed By: #### L 503.6030, L503.6550, L501.9520, L506.0400, L501.70283, L500.4050, L3300.6900, L500.4100, L100.0100 #### [facility] [address] [place], [address] ALT [Catalytic activity/Vol] 15 U/L Normal <=46 [facility] Comment on above: Result Comment: Hemo lysis present, Results??could be affected. ?? Performed By: #### L 503.6030, L503.6550, L501.9520, L506.0400, L501.74752, L500.4050, L3300.6900, L500.4100, L100.0100 #### [facility] [address] [place], [address] AST [Catalytic activity/Vol] 29 U/L Normal <=37 [facility] Comment on above: Result Comment: Hemo lysis present, Results??could be affected. ?? Performed By: #### L 503.6030, L503.6550, L501.9520, L506.0400, L501.19929, L500.4050, L3300.6900, L500.4100, L100.0100 #### [facility] [address] [place], [address] Bilirubin [Mass/Vol] 0.51 mg/dL Normal 0.00-1.30 [facility] Comment on above: Performed By: #### L 503.6030, L503.6550, L501.9520, L506.0400, L501.86700, L500.4050, L3300.6900, L500.4100, L100.0100 #### [facility] [address] [place], [address] BUN/CRE 20.1 RATIO High 10-20 [facility] Comment on above: Performed By: #### L 503.6030, L503.6550, L501.9520, L506.0400, L501.74491, L500.4050, L3300.6900, L500.4100, L100.0100 #### [facility] [address] [place], [address] Calcium [Mass/Vol] 9.3 mg/dL Normal 7.6-11.0 [facility] Comment on above: Performed By: #### L 503.6030, L503.6550, L501.9520, L506.0400, L501.78663, L500.4050, L3300.6900, L500.4100, L100.0100 #### [facility] [address] [place], [address] Chloride [Moles/Vol] 103 mmol/L Normal 98-108 [facility] Comment on above: Performed By: #### L 503.6030, L503.6550, L501.9520, L506.0400, L501.11594, L500.4050, L3300.6900, L500.4100, L100.0100 #### [facility] [address] [place], [address] CO2 [Moles/Vol] 22.9 mmol/L Normal 21.0-32.0 [facility] Comment on above: Performed By: #### L 503.6030, L503.6550, L501.9520, L506.0400, L501.60347, L500.4050, L3300.6900, L500.4100, L100.0100 #### [facility] [address] [place], [place], [id number] (305) Creatinine [Mass/Vol] 0.85 mg/dL Normal 0.70-1.20 [facility] Comment on above: Performed By: #### L 503.6030, L503.6550, L501.9520, L506.0400, L501.06544, L500.4050, L3300.6900, L500.4100, L100.0100 #### [facility] [address] [place], [address] GAP 15 Normal 5-15 [facility] Comment on above: Performed By: #### L 503.6030, L503.6550, L501.9520, L506.0400, L501.16829, L500.4050, L3300.6900, L500.4100, L100.0100 #### [facility] [address] [place], [place], [id number] (326) GFR/1.73 sq M.predicted among non-blacks MDRD (S/P/Bld) [Vol rate/Area] 103 mL/min/{1.73_m2} Normal >60 [facility] Comment on above: Result Comment: mL/m in/1.73m2 CKD-EPI Creatinine Equation (2020) Performed By: #### L 503.6030, L503.6550, L501.9520, L506.0400, L501.91970, L500.4050, L3300.6900, L500.4100, L100.0100 #### [facility] [address] [place], [address] (379) Globulin (S) [Mass/Vol] 3.0 g/dL Normal 2.2-4.2 [facility] Comment on above: Performed By: #### L 503.6030, L503.6550, L501.9520, L506.0400, L501.85067, L500.4050, L3300.6900, L500.4100, L100.0100 #### [facility] [address] [place], [address] Glucose [Mass/Vol] 143 mg/dL High 70-99 [facility] Comment on above: Performed By: #### L 503.6030, L503.6550, L501.9520, L506.0400, L501.22465, L500.4050, L3300.6900, L500.4100, L100.0100 #### [facility] [address] [place], [address] Potassium [Moles/Vol] 3.8 mmol/L Normal 3.3-5.1 [facility] Comment on above: Result Comment: Hemo lysis present, Results??could be affected. ?? Performed By: #### L 503.6030, L503.6550, L501.9520, L506.0400, L501.44230, L500.4050, L3300.6900, L500.4100, L100.0100 #### [facility] [address] [place], [address] Sodium [Moles/Vol] 141 mmol/L Normal 133-145 [facility] Comment on above: Performed By: #### L 503.6030, L503.6550, L501.9520, L506.0400, L501.47690, L500.4050, L3300.6900, L500.4100, L100.0100 #### [facility] [address] [place], [address] T PROT 7.2 g/dL Normal 5.9-8.4 [facility] Comment on above: Performed By: #### L 503.6030, L503.6550, L501.9520, L506.0400, L501.58784, L500.4050, L3300.6900, L500.4100, L100.0100 #### [facility] [address] [place], [place], [id number] Urea nitrogen [Mass/Vol] 17 mg/dL Normal 4-19 [facility] Comment on above: Performed By: #### L 503.6030, L503.6550, L501.9520, L506.0400, L501.94564, L500.4050, L3300.6900, L500.4100, L100.0100 #### [facility] [address] [place], [place], [address] Eosinophil percentageOrdered By: Bon Beam on 05-06-2025 Eosinophils/100 WBC (Bld) 2.2 % 0-5 [facility] Erythrocyte distribution wid th ratioOrdered By: [facility] Caren Beam on 05-06-2025 Erythrocyte distribution width (RBC) [Ratio] 13.0 % 11.6-14.6 [facility] Erythrocyte distribution wid th standard deviationOrdered By: [facility] Caren Beam on 05-06-2025 Erythrocyte distribution width (RBC) [Ratio] 42.3 fl 35.1-43.9 [facility] Glomerular filtration rate ( GFR) estimation/1.73 sq m using serum, plasma, or whole bOrdered By: [facility] on 05-06-2025 GFR/1.73 sq M.predicted among non-blacks MDRD (S/P/Bld) [Vol rate/Area] 103 mL/min/{1.73_m2} >60 [facility] Comment on above: mL/min/1.73m2 CKD-EP I Creatinine Equation (2020) Hematocrit Auto (Bld) [Volum e fraction]Ordered By: Terrence Ribeiro on 05-06-2025 Hematocrit (Bld) [Volume fraction] 40.1 % 40-54 [facility] Hemoglobin measurementOrdere d By: Terrence Ribeiro on 05-06-2025 Hemoglobin (Bld) [Mass/Vol] 13.6 g/dL 13.0-16.5 [facility] Immature granulocytes/100 WB C Auto (Bld)Ordered By: Bon Gema on 05-06-2025 Immature granulocytes/100 WBC (Bld) 0.200 % 0.0-0.9 [facility] Comment on above: IG% - Immature Granu locytes (promyelocytes, myelocytes and metamyelocytes) > 1% indicates that a LEFT SHIFT is Present. Laboratory - Chemistry and C hemistry - challengeOrdered By: james Ribeiro on 05-06-2025 AST [Catalytic activity/Vol] 29 U/L <38 [facility] Comment on above: Hemolysis present, R esults could be affected. MCV (mean corpuscular volume ) determinationOrdered By: Terrence Ribeiro on 05-06-2025 MCV (RBC) [Entitic vol] 89.5 fL 80-94 [facility] Mean corpuscular hemoglobin (MCH) determinationOrdered By: [facility] on 05-06-2025 MCH (RBC) [Entitic mass] 30.4 pg 27.0-32.0 [facility] Mean corpuscular hemoglobin concentration (MCHC) determinationOrdered By: james Ribeiro on 05-06-2025 MCHC (RBC) [Mass/Vol] 33.9 g/dL 32-36 [facility] Mean platelet volume determi nationOrdered By: Terrence Ribeiro on 05-06-2025 Mean platelet volume determination TNP [facility] Comment on above: Test not performedPr evious reported result: 10.8 flEdited by: RYANN on 05/06/25:2004 AMENDED REPORT 05/06/252004 MPV previously reported as: 10.8 fl Monocyte percentageOrdered B y: Terrence Ribeiro on 05-06-2025 Monocytes/100 WBC (Bld) 10.5 % High 0-10 [facility] Neutrophil percentageOrdered By: Terrence Ribeiro on 05-06-2025 Neutrophils/100 WBC (Bld) 52.2 % 47-70 [facility] Nucleated red blood cell per centageOrdered By: Terrence Beam on 05-06-2025 Nucleated RBC/100 WBC (Bld) [Ratio] 0 % 0-5 [facility] PSA Total+%Freeon 05-06-2025 PSA, FREE Normal [facility] Comment on above: Order Comment: PLEAS E ADD ON [facility] WILL TAKE A LITHIUM HEP. Result Comment: NOT ENOUGH SPECIMEN TO SEND OUT, OFFICE TO BE CALLED TO VERIFY TESTING THAT IS WANTED. Performed By: #### L 503.6030, L503.6550, L501.9520, L506.0400, L501.85590, L500.4050, L3300.6900, L500.4100, L100.0100 #### [facility] [address] [place], [address] PSA, FREE % Normal [facility] Comment on above: Order Comment: PLEAS E ADD ON [facility] WILL TAKE A LITHIUM HEP. Result Comment: NOT ENOUGH SPECIMEN TO SEND OUT, OFFICE TO BE CALLED TO VERIFY TESTING THAT IS WANTED. Performed By: #### L 503.6030, L503.6550, L501.9520, L506.0400, L501.25717, L500.4050, L3300.6900, L500.4100, L100.0100 #### [facility] [address] [place], [address] PSA, TOTAL ULTR Normal [facility] Comment on above: Order Comment: PLEAS E ADD ON [facility] WILL TAKE A LITHIUM HEP. Result Comment: NOT ENOUGH SPECIMEN TO SEND OUT, OFFICE TO BE CALLED TO VERIFY TESTING THAT IS WANTED. Performed By: #### L 503.6030, L503.6550, L501.9520, L506.0400, L501.53680, L500.4050, L3300.6900, L500.4100, L100.0100 #### [facility] [address] [place], [address] PSA,Total- Diagnosticon 04-09 PSA, DIAGNOSTIC 7.44 ng/mL High 0.00-4.00 [facility] Comment on above: Result Comment: This test was performed using the [employer] tPSA method. Measured values of a patient??sample can vary depending on the testing procedure used. PSA values determined on patient samples by different testing procedures cannot be used interchangeably. If there is a change in PSA assays while monitoring therapy, sequential testing should be performed to confirm baseline values. Performed By: #### L 503.6030, L503.6550, L501.9520, L506.0400, L501.49018, L500.4050, L3300.6900, L500.4100, L100.0100 #### [facility] [address] [place], [place], [address] Platelet countOrdered By: Orlando Ribeiro on 05-06-2025 Platelet count TNP [facility] Comment on above: Test not performedPl ease note: For this sample, a platelet estimate is provided rather than a platelet count due to platelet clumping. Other parameters associated with this sample are not affected by platelet clumping. If a more accurate platelet count is required, a redraw of the patient will be necessary. Platelet estimateOrdered By: Terrence Ribeiro on 05-06-2025 Platelets LM Ql (Bld) ADEQUATE ADEQ [facility] Potassium measurement (mass/ volume)Ordered By: Terrence Ribeiro on 05-06-2025 Potassium (Unsp spec) [Mass/Vol] 3.8 mmol/L 3.3-5.1 [facility] Comment on above: Hemolysis present, R esults could be affected. RBC Auto (Bld) [#/Vol]Ordere d By: Terrence Ribeiro on 05-06-2025 RBC (Bld) [#/Vol] 4.48 10*6/uL Low 4.6-6.2 [facility] Serum creatinine measurement (mass/volume)Ordered By: Terrence Ribeiro on 05-06-2025 Creatinine [Mass/Vol] 0.85 mg/dL 0.70-1.20 [facility] Serum globulin measurementOr dered By: Terrence Ribeiro on 05-06-2025 Globulin (S) [Mass/Vol] 3.0 g/dL 2.2-4.2 [facility] Serum glucose measurement (m ass/volume)Ordered By: Terrence Ribeiro on 05-06-2025 Glucose [Mass/Vol] 143 mg/dL High 70-99 [facility] Serum or plasma alanine sinha otransferase (ALT) measurementOrdered By: Terrence Ribeiro on 05-06-2025 ALT [Catalytic activity/Vol] 15 U/L <47 [facility] Comment on above: Hemolysis present, R esults could be affected. Serum or plasma albumin anai urement (mass/volume)Ordered By: Terrence Ribeiro on 05-06-2025 Albumin [Mass/Vol] 4.1 g/dL 3.5-5.0 [facility] Serum or plasma albumin/glob ulin mass ratioOrdered By: Terrence Ribeiro on 05-06-2025 Albumin/Globulin [Mass ratio] 1.4 {ratio} 0.9-2.4 [facility] Serum or plasma alkaline dariana sphatase measurementOrdered By: Terrence Ribeiro on 05-06-2025 ALP [Catalytic activity/Vol] 93 U/L 40-129 [facility] Serum or plasma calcium anai urement (mass/volume)Ordered By: Terrence Ribeiro on 05-06-2025 Calcium [Mass/Vol] 9.3 mg/dL 7.6-11.0 [facility] Serum or plasma urea nitroge n measurement (mass/volume)Ordered By: Terrence Ribeiro on 05-06-2025 Urea nitrogen [Mass/Vol] 17 mg/dL 4-19 [facility] Sodium levelOrdered By: Westley Ribeiro on 05-06-2025 Sodium [Moles/Vol] 141 mmol/L 133-145 [facility] Total proteinOrdered By: Tim Ribeiro on 05-06-2025 Protein [Mass/Vol] 7.2 g/dL 5.9-8.4 [facility] White blood cell (WBC) count Ordered By: Terrence Ribeiro on 05-06-2025 WBC (Bld) [#/Vol] 6.5 10*3/uL 4.4-11.0 [facility] Thyroid Peroxidase ABon - THYR PEROX AB < 9 Normal 0-34 [facility] Comment on above: Result Comment: Perf ormed at: CB - [facility] [address] [id number] [employer]: Harry Aguirre PhD, Phone: [phone] Performed By: #### L 503.2430, L503.0855, L501.8720, L506.0400, L501.82329, L500.4050, L3300.6900, L500.4100, L100.0100 #### [facility] [address] [facility] [place], [address] 12 Lead EKGon 05-01-2025 [address] [facility] [address] [place] [address] 12 Lead EKG 05/01/25 1437 MR#: [id number] Acct: [id number] Name: PJ BILLS Rep #: [id number] : 1970 54 From: Alok Andrews MD Attending Dr: Status: DEP ER Ordering Dr: Alexandru Lee MD Date: 05/01/25 Location: ED Sex: M C Admitted: Test Reason : ABN LABS Blood Pressure : */* mmHG Vent. Rate : 56 BPM Atrial Rate : 56 BPM P-R Int : 184 ms QRS Dur : 114 ms QT Int : 460 ms P-R-T Axes : 19 -23 198 degrees QTcB Int : 443 ms Sinus bradycardia Left ventricular hypertrophy with repolarization abnormality ( R in aVL , [employer] product ) Abnormal ECG Confirmed by Alok Andrews ([id number]), online editor MIKA VELA ([id number]) on 05/03/2025 5:47:11 AM Referred By: Confirmed By: Alok Andrews 05/03/25 0547 Date Alok Andrews MD CC: FAVIOLA Stinson; Dr. Alexandru Lee MD Signed Normal [facility] Absolute lymphocyte countOrd ered By: Alexandru Lee on 05-01-2025 Lymphocytes Auto (Unsp spec) [#/Vol] 1.44 10*3/uL 0.83-4.51 [facility] Absolute neutrophil countOrd ered By: Alexandru Lee on 05-01-2025 Neutrophils (Bld) [#/Vol] 3.2 10*3/uL 2.0-7.7 [facility] Anion gap in Serum or Plasma Ordered By: Alexandru Lee on 05-01-2025 Anion gap [Moles/Vol] 12 mmol/L 5-15 [facility] Automated lymphocyte count a s percentage of total leukocytesOrdered By: Alexandru Lee on 05-01-2025 Lymphocytes/100 WBC Auto (Unsp spec) 26.8 % 19- [facility] BUN/creatinine ratioOrdered By: Alexandru Lee on 05-01-2025 Urea nitrogen/Creatinine [Mass ratio] 17.7 mg/mg 10- [facility] Basophil percentageOrdered B y: Alexandru Lee on 05-01-2025 Basophils/100 WBC (Bld) 0.6 % 0-1 [facility] Bilirubin, totalOrdered By: Alexandru Lee on 05-01-2025 Bilirubin [Mass/Vol] 0.57 mg/dL 0.00-1.30 [facility] CBC W/Diff, Automatedon 04-09 Absolute Lymph 1.44 X10 3/uL Normal 0.83-4.51 [facility] Comment on above: Performed By: #### L 503.6030, L503.6550, L501.9520, L506.0400, L501.56130, L500.4050, L3300.6900, L500.4100, L100.0100 #### [facility] [address] [facility] [place], [address] Absolute Neut 3.2 X10 3/uL Normal 2.0-7.7 [facility] Comment on above: Performed By: #### L 503.6030, L503.6550, L501.9520, L506.0400, L501.27444, L500.4050, L3300.6900, L500.4100, L100.0100 #### [facility] [address] [place], [address] Basophils/100 WBC (Bld) 0.6 % Normal 0-1 [facility] Comment on above: Performed By: #### L 503.6030, L503.6550, L501.9520, L506.0400, L501.30069, L500.4050, L3300.6900, L500.4100, L100.0100 #### [facility] [address] [place], [address] Eosinophils/100 WBC (Bld) 2.0 % Normal 0-5 [facility] Comment on above: Performed By: #### L 503.6030, L503.6550, L501.9520, L506.0400, L501.69738, L500.4050, L3300.6900, L500.4100, L100.0100 #### [facility] [address] [place], [address] Erythrocyte distribution width (RBC) [Ratio] 12.7 % Normal 11.6-14.6 [facility] Comment on above: Performed By: #### L 503.6030, L503.6550, L501.9520, L506.0400, L501.26482, L500.4050, L3300.6900, L500.4100, L100.0100 #### [facility] [address] [place], [address] Hematocrit (Bld) [Volume fraction] 38.7 % Low 40-54 [facility] Comment on above: Performed By: #### L 503.6030, L503.6550, L501.9520, L506.0400, L501.82144, L500.4050, L3300.6900, L500.4100, L100.0100 #### [facility] [address] [place], [address] Hemoglobin (Bld) [Mass/Vol] 14.1 g/dL Normal 13.0-16.5 [facility] Comment on above: Performed By: #### L 503.6030, L503.6550, L501.9520, L506.0400, L501.87320, L500.4050, L3300.6900, L500.4100, L100.0100 #### [facility] [address] [place], [address] IG% 0.200 Normal 0.0-0.9 [facility] Comment on above: Result Comment: IG% - Immature Granulocytes (promyelocytes, myelocytes and metamyelocytes) > 1% indicates that a LEFT SHIFT is Present. Performed By: #### L 503.6030, L503.6550, L501.9520, L506.0400, L501.60936, L500.4050, L3300.6900, L500.4100, L100.0100 #### [facility] [address] [place], [address] Lymphocytes/100 WBC (Bld) 26.8 % Normal 19-41 [facility] Comment on above: Performed By: #### L 503.6030, L503.6550, L501.9520, L506.0400, L501.47172, L500.4050, L3300.6900, L500.4100, L100.0100 #### [facility] [address] [place], [address] MCH (RBC) [Entitic mass] 31.4 pg Normal 27.0-32.0 [facility] Comment on above: Performed By: #### L 503.6030, L503.6550, L501.9520, L506.0400, L501.16509, L500.4050, L3300.6900, L500.4100, L100.0100 #### [facility] [address] [place], [address] MCHC (RBC) [Mass/Vol] 36.4 g/dL High 32-36 [facility] Comment on above: Performed By: #### L 503.6030, L503.6550, L501.9520, L506.0400, L501.51044, L500.4050, L3300.6900, L500.4100, L100.0100 #### [facility] [address] [place], [address] MCV (RBC) [Entitic vol] 86.2 fL Normal 80-94 [facility] Comment on above: Performed By: #### L 503.6030, L503.6550, L501.9520, L506.0400, L501.46129, L500.4050, L3300.6900, L500.4100, L100.0100 #### [facility] [address] [place], [address] Monocytes/100 WBC (Bld) 11.2 % High 0-10 [facility] Comment on above: Performed By: #### L 503.6030, L503.6550, L501.9520, L506.0400, L501.56233, L500.4050, L3300.6900, L500.4100, L100.0100 #### [facility] [address] [place], [address] Neutrophils/100 WBC (Bld) 59.2 % Normal 47-70 [facility] Comment on above: Performed By: #### L 503.6030, L503.6550, L501.9520, L506.0400, L501.79600, L500.4050, L3300.6900, L500.4100, L100.0100 #### [facility] [address] [place], [address] Nucleated RBC (Bld) [#/Vol] 0 10*3/uL Normal 0-5 [facility] Comment on above: Performed By: #### L 503.6030, L503.6550, L501.9520, L506.0400, L501.47848, L500.4050, L3300.6900, L500.4100, L100.0100 #### [facility] [address] [place], [address] Platelet mean volume (Bld) [Entitic vol] 9.6 fL Normal 6.2-12.0 [facility] Comment on above: Performed By: #### L 503.6030, L503.6550, L501.9520, L506.0400, L501.42434, L500.4050, L3300.6900, L500.4100, L100.0100 #### [facility] [address] [place], [address] Platelets (Bld) [#/Vol] 225 10*3/uL Normal 150-450 [facility] Comment on above: Performed By: #### L 503.6030, L503.6550, L501.9520, L506.0400, L501.89212, L500.4050, L3300.6900, L500.4100, L100.0100 #### [facility] [address] [place], [address] RBC (Bld) [#/Vol] 4.49 10*6/uL Low 4.6-6.2 [facility] Comment on above: Performed By: #### L 503.6030, L503.6550, L501.9520, L506.0400, L501.94862, L500.4050, L3300.6900, L500.4100, L100.0100 #### [facility] [address] [place], [address] RDW SD 39.7 fl Normal 35.1-43.9 [facility] Comment on above: Performed By: #### L 503.6030, L503.6550, L501.9520, L506.0400, L501.72254, L500.4050, L3300.6900, L500.4100, L100.0100 #### [facility] [address] [place], [address] WBC (Bld) [#/Vol] 5.4 10*3/uL Normal 4.4-11.0 [facility] Comment on above: Performed By: #### L 503.6030, L503.6550, L501.9520, L506.0400, L501.70355, L500.4050, L3300.6900, L500.4100, L100.0100 #### [facility] [address] [place], [address] (255) Carbon dioxide, total [Moles /volume] in Central venous bloodOrdered By: Alexandru Lee on 05-01-2025 CO2 [Moles/Vol] 28.9 mmol/L 21.0-32.0 [facility] Chloride assayOrdered By: Duglas Lee on 05-01-2025 Chloride [Moles/Vol] 100 mmol/L 98-108 [facility] Comprehensive Metabolic Prof ilon 05-01-2025 Albumin [Mass/Vol] 4.2 g/dL Normal 3.5-5.0 [facility] Comment on above: Order Comment: ANJALI Singh PREVIOUS SPECIMEN REJECTED DUE TOHEMOLYSIS. 05/01/25 1414 Eduardo Cole. Performed By: #### L 503.6030, L503.6550, L501.9520, L506.0400, L501.02163, L500.4050, L3300.6900, L500.4100, L100.0100 #### [facility] [address] [place], [address] Albumin/Globulin [Mass ratio] 1.5 {ratio} Normal 0.9-2.4 [facility] Comment on above: Order Comment: REDRA W. PREVIOUS SPECIMEN REJECTED DUE TOHEMOLYSIS. 05/01/251413 Eduardo Keith Kelsey. Performed By: #### L 503.6030, L503.6550, L501.9520, L506.0400, L501.60731, L500.4050, L3300.6900, L500.4100, L100.0100 #### [facility] [address] [place], [address] ALK PHOS 94 U/L Normal 40-129 [facility] Comment on above: Order Comment: REDRA W. PREVIOUS SPECIMEN REJECTED DUE TOHEMOLYSIS. 05/01/251413 Eduardo Keith Kelsey. Performed By: #### L 503.6030, L503.6550, L501.9520, L506.0400, L501.63553, L500.4050, L3300.6900, L500.4100, L100.0100 #### [facility] [address] [place], [address] ALT [Catalytic activity/Vol] 16 U/L Normal <=46 [facility] Comment on above: Order Comment: REDRA W. PREVIOUS SPECIMEN REJECTED DUE TOHEMOLYSIS. 05/01/251413 Eduardo Keith Kelsey. Performed By: #### L 503.6030, L503.6550, L501.9520, L506.0400, L501.56587, L500.4050, L3300.6900, L500.4100, L100.0100 #### [facility] [address] [place], [address] AST [Catalytic activity/Vol] 23 U/L Normal <=37 [facility] Comment on above: Order Comment: REDRA W. PREVIOUS SPECIMEN REJECTED DUE TOHEMOLYSIS. 05/01/251413 Eduardo Keith Kelsey. Performed By: #### L 503.6030, L503.6550, L501.9520, L506.0400, L501.81936, L500.4050, L3300.6900, L500.4100, L100.0100 #### [facility] [address] [place], [address] Bilirubin [Mass/Vol] 0.57 mg/dL Normal 0.00-1.30 [facility] Comment on above: Order Comment: RED W. PREVIOUS SPECIMEN REJECTED DUE TOHEMOLYSIS. 05/01/25 1414 Eduardo Cole. Performed By: #### L 503.6030, L503.6550, L501.9520, L506.0400, L501.82804, L500.4050, L3300.6900, L500.4100, L100.0100 #### [facility] [address] [place], [address] BUN/CRE 17.7 RATIO Normal 10-20 [facility] Comment on above: Order Comment: RED W. PREVIOUS SPECIMEN REJECTED DUE TOHEMOLYSIS. 05/01/25 1414 Eduardo Cole. Performed By: #### L 503.6030, L503.6550, L501.9520, L506.0400, L501.30728, L500.4050, L3300.6900, L500.4100, L100.0100 #### [facility] [address] [place], [address] Calcium [Mass/Vol] 9.1 mg/dL Normal 7.6-11.0 [facility] Comment on above: Order Comment: RED W. PREVIOUS SPECIMEN REJECTED DUE TOHEMOLYSIS. 05/01/25 1414 Eduardo Cole. Performed By: #### L 503.6030, L503.6550, L501.9520, L506.0400, L501.37848, L500.4050, L3300.6900, L500.4100, L100.0100 #### [facility] [address] [place], [address] Chloride [Moles/Vol] 100 mmol/L Normal 98-108 [facility] Comment on above: Order Comment: REDRA W. PREVIOUS SPECIMEN REJECTED DUE TOHEMOLYSIS. 05/01/25 1414 Eduardo Cole. Performed By: #### L 503.6030, L503.6550, L501.9520, L506.0400, L501.71444, L500.4050, L3300.6900, L500.4100, L100.0100 #### [facility] [address] [place], [address] CO2 [Moles/Vol] 28.9 mmol/L Normal 21.0-32.0 [facility] Comment on above: Order Comment: REDRA W. PREVIOUS SPECIMEN REJECTED DUE TOHEMOLYSIS. 05/01/25 141 Eduardo Cole. Performed By: #### L 503.6030, L503.6550, L501.9520, L506.0400, L501.44827, L500.4050, L3300.6900, L500.4100, L100.0100 #### [facility] [address] [place], [address] Creatinine [Mass/Vol] 0.75 mg/dL Normal 0.70-1.20 [facility] Comment on above: Order Comment: REDRA W. PREVIOUS SPECIMEN REJECTED DUE TOHEMOLYSIS. 05/01/25 1414 Eduardo Cole. Performed By: #### L 503.6030, L503.6550, L501.9520, L506.0400, L501.06578, L500.4050, L3300.6900, L500.4100, L100.0100 #### [facility] [address] [place], [address] ECRCL 127.25 ml/min Normal 50-250 [facility] Comment on above: Order Comment: REDRA W. PREVIOUS SPECIMEN REJECTED DUE TOHEMOLYSIS. 05/01/25 141 Eduardo Cole. Performed By: #### L 503.6030, L503.6550, L501.9520, L506.0400, L501.74966, L500.4050, L3300.6900, L500.4100, L100.0100 #### [facility] [address] [place], [place], [id number] GAP 12 Normal 5-15 [facility] Comment on above: Order Comment: REDRA W. PREVIOUS SPECIMEN REJECTED DUE TOHEMOLYSIS. 05/01/25 1414 Eduardo Cole. Performed By: #### L 503.6030, L503.6550, L501.9520, L506.0400, L501.92362, L500.4050, L3300.6900, L500.4100, L100.0100 #### [facility] [address] [place], [place], [id number] GFR/1.73 sq M.predicted among non-blacks MDRD (S/P/Bld) [Vol rate/Area] 107 mL/min/{1.73_m2} Normal >60 [facility] Comment on above: Order Comment: REDRA W. PREVIOUS SPECIMEN REJECTED DUE TOHEMOLYSIS. 05/01/25 1414 Eduardo Cole. Result Comment: mL/m in/1.73m2 CKD-EPI Creatinine Equation (2020) Performed By: #### L 503.6030, L503.6550, L501.9520, L506.0400, L501.62286, L500.4050, L3300.6900, L500.4100, L100.0100 #### [facility] [address] [place], [place], [id number] Globulin (S) [Mass/Vol] 2.7 g/dL Normal 2.2-4.2 [facility] Comment on above: Order Comment: REDRA W. PREVIOUS SPECIMEN REJECTED DUE TOHEMOLYSIS. 05/01/25 1414 Eduardo Cole. Performed By: #### L 503.6030, L503.6550, L501.9520, L506.0400, L501.29062, L500.4050, L3300.6900, L500.4100, L100.0100 #### [facility] [address] [place], [address] Glucose [Mass/Vol] 169 mg/dL High 70-99 [facility] Comment on above: Order Comment: REDRA W. PREVIOUS SPECIMEN REJECTED DUE TOHEMOLYSIS. 05/01/25 1414 Eduardo Cole. Performed By: #### L 503.6030, L503.6550, L501.9520, L506.0400, L501.77302, L500.4050, L3300.6900, L500.4100, L100.0100 #### [facility] [address] [place], [address] Potassium [Moles/Vol] 2.5 mmol/L Invalid Interpretation Code 3.3-5.1 [facility] Comment on above: Order Comment: REDRA W. PREVIOUS SPECIMEN REJECTED DUE TOHEMOLYSIS. 05/01/25 1414 Eduardo Cole. Result Comment: Crit ical Result(s) Called at: 1542 by: BAKARI PADRON TO MOHAN DAVIDSON??Results read back by same. Performed By: #### L 503.6030, L503.6550, L501.9520, L506.0400, L501.09310, L500.4050, L3300.6900, L500.4100, L100.0100 #### [facility] [address] [place], [address] Sodium [Moles/Vol] 141 mmol/L Normal 133-145 [facility] Comment on above: Order Comment: REDRA W. PREVIOUS SPECIMEN REJECTED DUE TOHEMOLYSIS. 05/01/25 1414 Eduardo Cole. Performed By: #### L 503.6030, L503.6550, L501.9520, L506.0400, L501.19252, L500.4050, L3300.6900, L500.4100, L100.0100 #### [facility] [address] [place], [address] T PROT 6.8 g/dL Normal 5.9-8.4 [facility] Comment on above: Order Comment: REDRA W. PREVIOUS SPECIMEN REJECTED DUE TOHEMOLYSIS. 05/01/25 1414 Eduardo Cole. Performed By: #### L 503.6030, L503.6550, L501.9520, L506.0400, L501.06626, L500.4050, L3300.6900, L500.4100, L100.0100 #### [facility] [address] [place], [address] Urea nitrogen [Mass/Vol] 13 mg/dL Normal 4-19 [facility] Comment on above: Order Comment: REDRA W. PREVIOUS SPECIMEN REJECTED DUE TOHEMOLYSIS. 05/01/25 1414 Eduardo Cole. Performed By: #### L 503.6030, L503.6550, L501.9520, L506.0400, L501.82767, L500.4050, L3300.6900, L500.4100, L100.0100 #### [facility] [address] [place], [place], [id number] (419) ALB Normal 3.5-5.0 [facility] Comment on above: Order Comment: REDRA W. PREVIOUS SPECIMEN REJECTED DUE TOHEMOLYSIS. 05/01/25 1326 Eduardo Cole. Result Comment: This specimen has been REJECTED due to Laboratory criteria: Hemolyzed. PAGE (ED) has been notified of need of recollection. 05/01/25 1413 Eduardo Cole Performed By: #### L 503.6030, L503.6550, L501.9520, L506.0400, L501.29775, L500.4050, L3300.6900, L500.4100, L100.0100 #### [facility] [address] [place], [place], [id number] ALK PHOS Normal 40-129 [facility] Comment on above: Order Comment: REDRA W. PREVIOUS SPECIMEN REJECTED DUE TOHEMOLYSIS. 05/01/25 1326 Eduardo Keith Kelsey. Result Comment: This specimen has been REJECTED due to Laboratory criteria: Hemolyzed. PAGE (ED) has been notified of need of recollection. 05/01/25 1413 Eduardo Keith White Performed By: #### L 503.6030, L503.6550, L501.9520, L506.0400, L501.27277, L500.4050, L3300.6900, L500.4100, L100.0100 #### [facility] [address] [place], [place], [id number] (679) ALT Normal <=46 [facility] Comment on above: Order Comment: REDRA W. PREVIOUS SPECIMEN REJECTED DUE TOHEMOLYSIS. 05/01/25 1326 Eduardo Keith White. Result Comment: This specimen has been REJECTED due to Laboratory criteria: Hemolyzed. PAGE (ED) has been notified of need of recollection. 05/01/25 1413 Eduardo L White Performed By: #### L 503.6030, L503.6550, L501.9520, L506.0400, L501.69586, L500.4050, L3300.6900, L500.4100, L100.0100 #### [facility] [address] [place], [place], [id number] (941) AST Normal <=37 [facility] Comment on above: Order Comment: REDRA W. PREVIOUS SPECIMEN REJECTED DUE TOHEMOLYSIS. 05/01/25 1326 Eduardo Keith Kelsey. Result Comment: This specimen has been REJECTED due to Laboratory criteria: Hemolyzed. PAGE (ED) has been notified of need of recollection. 05/01/25 1413 Eduardo L White Performed By: #### L 503.6030, L503.6550, L501.9520, L506.0400, L501.82276, L500.4050, L3300.6900, L500.4100, L100.0100 #### [facility] [address] [place], [place], [id number] (274) BUN Normal 4-19 [facility] Comment on above: Order Comment: REDRA W. PREVIOUS SPECIMEN REJECTED DUE TOHEMOLYSIS. 05/01/25 1326 Eduardo Cole. Result Comment: This specimen has been REJECTED due to Laboratory criteria: Hemolyzed. PAGE (ED) has been notified of need of recollection. 05/01/25 1413 Eduardo Keith White Performed By: #### L 503.6030, L503.6550, L501.9520, L506.0400, L501.36322, L500.4050, L3300.6900, L500.4100, L100.0100 #### [facility] [address] [place], [address] BUN/CRE Normal 10-20 [facility] Comment on above: Order Comment: REDRA W. PREVIOUS SPECIMEN REJECTED DUE TOHEMOLYSIS. 05/01/25 1326 Eduardo Cole. Result Comment: This specimen has been REJECTED due to Laboratory criteria: Hemolyzed. PAGE (ED) has been notified of need of recollection. 05/01/25 1413 Eduardo Keith White Performed By: #### L 503.6030, L503.6550, L501.9520, L506.0400, L501.10284, L500.4050, L3300.6900, L500.4100, L100.0100 #### [facility] [address] [place], [place], [id number] ([address] Calcium Normal 7.6-11.0 [facility] Comment on above: Order Comment: REDRA W. PREVIOUS SPECIMEN REJECTED DUE TOHEMOLYSIS. 05/01/25 1326 Eduardo Keith White. Result Comment: This specimen has been REJECTED due to Laboratory criteria: Hemolyzed. PAGE (ED) has been notified of need of recollection. 05/01/25 1413 Eduardo Keith White Performed By: #### L 503.6030, L503.6550, L501.9520, L506.0400, L501.88983, L500.4050, L3300.6900, L500.4100, L100.0100 #### [facility] [address] [place], [place], [id number] CL Normal 98-108 [facility] Comment on above: Order Comment: REDRA W. PREVIOUS SPECIMEN REJECTED DUE TOHEMOLYSIS. 05/01/25 1326 Eduardo Keith White. Result Comment: This specimen has been REJECTED due to Laboratory criteria: Hemolyzed. PAGE (ED) has been notified of need of recollection. 05/01/25 1413 Eduardo L White Performed By: #### L 503.6030, L503.6550, L501.9520, L506.0400, L501.75764, L500.4050, L3300.6900, L500.4100, L100.0100 #### [facility] [address] [place], [place], [id number] CO2 Normal 21.0-32.0 [facility] Comment on above: Order Comment: REDRA W. PREVIOUS SPECIMEN REJECTED DUE TOHEMOLYSIS. 05/01/25 132 Eduardo Keith White. Result Comment: This specimen has been REJECTED due to Laboratory criteria: Hemolyzed. PAGE (ED) has been notified of need of recollection. 05/01/25 1413 Eduardo L White Performed By: #### L 503.6030, L503.6550, L501.9520, L506.0400, L501.19007, L500.4050, L3300.6900, L500.4100, L100.0100 #### [facility] [address] [place], [place], [id number] CREAT,SERUM Normal 0.70-1.20 [facility] Comment on above: Order Comment: REDRA W. PREVIOUS SPECIMEN REJECTED DUE TOHEMOLYSIS. 05/01/25 1326 Eduardo Keith White. Result Comment: This specimen has been REJECTED due to Laboratory criteria: Hemolyzed. PAGE (ED) has been notified of need of recollection. 05/01/25 1413 Eduardo L White Performed By: #### L 503.6030, L503.6550, L501.9520, L506.0400, L501.94466, L500.4050, L3300.6900, L500.4100, L100.0100 #### [facility] [address] [place], [address] eGFR Normal >60 [facility] Comment on above: Order Comment: REDRA W. PREVIOUS SPECIMEN REJECTED DUE TOHEMOLYSIS. 05/01/25 1326 Eduardo Cole. Result Comment: This specimen has been REJECTED due to Laboratory criteria: Hemolyzed. PAGE (ED) has been notified of need of recollection. 05/01/25 1413 Eduardo Keith White Performed By: #### L 503.6030, L503.6550, L501.9520, L506.0400, L501.11930, L500.4050, L3300.6900, L500.4100, L100.0100 #### [facility] [address] [place], [place], [id number] GAP Normal 5-15 [facility] Comment on above: Order Comment: REDRA W. PREVIOUS SPECIMEN REJECTED DUE TOHEMOLYSIS. 05/01/25 1326 Eduardo Keith White. Result Comment: This specimen has been REJECTED due to Laboratory criteria: Hemolyzed. PAGE (ED) has been notified of need of recollection. 05/01/25 1413 Eduardo L White Performed By: #### L 503.6030, L503.6550, L501.9520, L506.0400, L501.72267, L500.4050, L3300.6900, L500.4100, L100.0100 #### [facility] [address] [place], [address] GLU Normal 70-99 [facility] Comment on above: Order Comment: REDRA W. PREVIOUS SPECIMEN REJECTED DUE TOHEMOLYSIS. 05/01/25 1326 Eduardo Keith White. Result Comment: This specimen has been REJECTED due to Laboratory criteria: Hemolyzed. PAGE (ED) has been notified of need of recollection. 05/01/25 1413 Eduardo L White Performed By: #### L 503.6030, L503.6550, L501.9520, L506.0400, L501.65322, L500.4050, L3300.6900, L500.4100, L100.0100 #### [facility] [address] [place], [address] Potassium Normal 3.3-5.1 [facility] Comment on above: Order Comment: REDRA W. PREVIOUS SPECIMEN REJECTED DUE TOHEMOLYSIS. 05/01/25 1326 Eduardo Cole. Result Comment: This specimen has been REJECTED due to Laboratory criteria: Hemolyzed. PAGE (ED) has been notified of need of recollection. 05/01/25 1413 Eduardo Keith White Performed By: #### L 503.6030, L503.6550, L501.9520, L506.0400, L501.12257, L500.4050, L3300.6900, L500.4100, L100.0100 #### [facility] [address] [place], [address] T BILI Normal 0.00-1.30 [facility] Comment on above: Order Comment: REDRA W. PREVIOUS SPECIMEN REJECTED DUE TOHEMOLYSIS. 05/01/25 1326 Eduardo Cole. Result Comment: This specimen has been REJECTED due to Laboratory criteria: Hemolyzed. PAGE (ED) has been notified of need of recollection. 05/01/25 1413 Eduardo Keith White Performed By: #### L 503.6030, L503.6550, L501.9520, L506.0400, L501.63509, L500.4050, L3300.6900, L500.4100, L100.0100 #### [facility] [address] [place], [address] T PROT Normal 5.9-8.4 [facility] Comment on above: Order Comment: REDRA W. PREVIOUS SPECIMEN REJECTED DUE TOHEMOLYSIS. 05/01/25 1326 Eduardo Keith White. Result Comment: This specimen has been REJECTED due to Laboratory criteria: Hemolyzed. PAGE (ED) has been notified of need of recollection. 05/01/25 1413 Eduardo Keith White Performed By: #### L 503.6030, L503.6550, L501.9520, L506.0400, L501.79645, L500.4050, L3300.6900, L500.4100, L100.0100 #### [facility] [address] [place], [place], [id number] Comprehensive Metabolic Profil Normal 133-145 [facility] Comment on above: Order Comment: REDRA W. PREVIOUS SPECIMEN REJECTED DUE TOHEMOLYSIS. 05/01/25 132 Eduardo Cole. Result Comment: This specimen has been REJECTED due to Laboratory criteria: Hemolyzed. PAGE (ED) has been notified of need of recollection. 05/01/25 141 Eduardo Keith White Performed By: #### L 503.6030, L503.6550, L501.9520, L506.0400, L501.10251, L500.4050, L3300.6900, L500.4100, L100.0100 #### [facility] [address] [place], [place], [id number] (427) ALB Normal 3.5-5.0 [facility] Comment on above: Result Comment: This specimen has been REJECTED due to Laboratory criteria: Hemolyzed. PAGE (ED) has been notified of need of recollection. 05/01/25 132 Eduardo Keith White Performed By: #### L 503.6030, L503.6550, L501.9520, L506.0400, L501.03638, L500.4050, L3300.6900, L500.4100, L100.0100 #### [facility] [address] [place], [place], [address] ALK PHOS Normal 40-129 [facility] Comment on above: Result Comment: This specimen has been REJECTED due to Laboratory criteria: Hemolyzed. PAGE (ED) has been notified of need of recollection. 05/01/25 132 Eduardo Keith White Performed By: #### L 503.6030, L503.6550, L501.9520, L506.0400, L501.04529, L500.4050, L3300.6900, L500.4100, L100.0100 #### [facility] [address] [place], [place], [address] (578) ALT Normal <=46 [facility] Comment on above: Result Comment: This specimen has been REJECTED due to Laboratory criteria: Hemolyzed. PAGE (ED) has been notified of need of recollection. 05/01/25 1326 Eduardo L White Performed By: #### L 503.6030, L503.6550, L501.9520, L506.0400, L501.39698, L500.4050, L3300.6900, L500.4100, L100.0100 #### [facility] [address] [place], [place], [id number] (943) AST Normal <=37 [facility] Comment on above: Result Comment: This specimen has been REJECTED due to Laboratory criteria: Hemolyzed. PAGE (ED) has been notified of need of recollection. 05/01/25 1326 Eduardo L White Performed By: #### L 503.6030, L503.6550, L501.9520, L506.0400, L501.18692, L500.4050, L3300.6900, L500.4100, L100.0100 #### [facility] [address] [place], [address] BUN Normal 4-19 [facility] Comment on above: Result Comment: This specimen has been REJECTED due to Laboratory criteria: Hemolyzed. PAGE (ED) has been notified of need of recollection. 05/01/25 1326 Eduardo L White Performed By: #### L 503.6030, L503.6550, L501.9520, L506.0400, L501.31968, L500.4050, L3300.6900, L500.4100, L100.0100 #### [facility] [address] [place], [address] BUN/CRE Normal 10-20 [facility] Comment on above: Result Comment: This specimen has been REJECTED due to Laboratory criteria: Hemolyzed. PAGE (ED) has been notified of need of recollection. 05/01/25 1326 Eduardo L White Performed By: #### L 503.6030, L503.6550, L501.9520, L506.0400, L501.73884, L500.4050, L3300.6900, L500.4100, L100.0100 #### [facility] [address] [place], [address] Calcium Normal 7.6-11.0 [facility] Comment on above: Result Comment: This specimen has been REJECTED due to Laboratory criteria: Hemolyzed. PAGE (ED) has been notified of need of recollection. 05/01/25 1326 Eduardo L White Performed By: #### L 503.6030, L503.6550, L501.9520, L506.0400, L501.68669, L500.4050, L3300.6900, L500.4100, L100.0100 #### [facility] [address] [place], [address] CL Normal 98-108 [facility] Comment on above: Result Comment: This specimen has been REJECTED due to Laboratory criteria: Hemolyzed. PAGE (ED) has been notified of need of recollection. 05/01/25 1326 Eduardo L White Performed By: #### L 503.6030, L503.6550, L501.9520, L506.0400, L501.69580, L500.4050, L3300.6900, L500.4100, L100.0100 #### [facility] [address] [place], [address] CO2 Normal 21.0-32.0 [facility] Comment on above: Result Comment: This specimen has been REJECTED due to Laboratory criteria: Hemolyzed. PAGE (ED) has been notified of need of recollection. 05/01/25 1326 Eduardo Keith White Performed By: #### L 503.6030, L503.6550, L501.9520, L506.0400, L501.58747, L500.4050, L3300.6900, L500.4100, L100.0100 #### [facility] [address] [place], [address] CREAT,SERUM Normal 0.70-1.20 [facility] Comment on above: Result Comment: This specimen has been REJECTED due to Laboratory criteria: Hemolyzed. PAGE (ED) has been notified of need of recollection. 05/01/25 1326 Eduardo Keith White Performed By: #### L 503.6030, L503.6550, L501.9520, L506.0400, L501.62831, L500.4050, L3300.6900, L500.4100, L100.0100 #### [facility] [address] [place], [address] eGFR Normal >60 [facility] Comment on above: Result Comment: This specimen has been REJECTED due to Laboratory criteria: Hemolyzed. PAGE (ED) has been notified of need of recollection. 05/01/25 1326 Eduardo Keith White Performed By: #### L 503.6030, L503.6550, L501.9520, L506.0400, L501.38265, L500.4050, L3300.6900, L500.4100, L100.0100 #### [facility] [address] [place], [address] GAP Normal 5-15 [facility] Comment on above: Result Comment: This specimen has been REJECTED due to Laboratory criteria: Hemolyzed. PAGE (ED) has been notified of need of recollection. 05/01/25 1326 Eduardo L White Performed By: #### L 503.6030, L503.6550, L501.9520, L506.0400, L501.87530, L500.4050, L3300.6900, L500.4100, L100.0100 #### [facility] [address] [place], [address] GLU Normal 70-99 [facility] Comment on above: Result Comment: This specimen has been REJECTED due to Laboratory criteria: Hemolyzed. PAGE (ED) has been notified of need of recollection. 05/01/25 1326 Eduardo Keith White Performed By: #### L 503.6030, L503.6550, L501.9520, L506.0400, L501.72044, L500.4050, L3300.6900, L500.4100, L100.0100 #### [facility] [address] [place], [address] Potassium Normal 3.3-5.1 [facility] Comment on above: Result Comment: This specimen has been REJECTED due to Laboratory criteria: Hemolyzed. PAGE (ED) has been notified of need of recollection. 05/01/25 1326 Eduardo Keith White Performed By: #### L 503.6030, L503.6550, L501.9520, L506.0400, L501.21830, L500.4050, L3300.6900, L500.4100, L100.0100 #### [facility] [address] [place], [address] T BILI Normal 0.00-1.30 [facility] Comment on above: Result Comment: This specimen has been REJECTED due to Laboratory criteria: Hemolyzed. PAGE (ED) has been notified of need of recollection. 05/01/25 1326 Eduardo Keith White Performed By: #### L 503.6030, L503.6550, L501.9520, L506.0400, L501.26571, L500.4050, L3300.6900, L500.4100, L100.0100 #### [facility] [address] [place], [address] T PROT Normal 5.9-8.4 [facility] Comment on above: Result Comment: This specimen has been REJECTED due to Laboratory criteria: Hemolyzed. PAGE (ED) has been notified of need of recollection. 05/01/25 1326 Eduardo Keith White Performed By: #### L 503.6030, L503.6550, L501.9520, L506.0400, L501.47725, L500.4050, L3300.6900, L500.4100, L100.0100 #### [facility] [address] [place], [place], [id number] Comprehensive Metabolic Profil Normal 133-145 [facility] Comment on above: Result Comment: This specimen has been REJECTED due to Laboratory criteria: Hemolyzed. DARLENEE (ED) has been notified of need of recollection. 05/01/25 1326 Eduardo Keith White Performed By: #### L 503.6030, L503.6550, L501.9520, L506.0400, L501.35490, L500.4050, L3300.6900, L500.4100, L100.0100 #### [facility] [address] [place], [place], [id number] Potassium [Moles/Vol] 2.5 mmol/L Invalid Interpretation Code 3.3-5.1 [facility] Comment on above: Result Comment: Crit ical Result(s) Called at: by:??Results read back by same. Critical Result(s) Called at: by:??Results read back by same. Critical Result(s) Called at: by:??Results read back by same. Critical Result(s) Called at: by:??Results read back by same. Critical Result(s) Called at: by:??Results read back by same. Critical Result(s) Called at: by:??Results read back by same. Critical Result(s) Called at: by:??Results read back by same. CALLED CRITICAL TO NAHUM WELSH @0856 05/01/2025 AMENDED REPORT 05/01/25 0857 K previously reported as: 2.5 *L mmol/L Critical Result(s) Called at: by:??Results read back by same. Critical Result(s) Called at: by:??Results read back by same. Critical Result(s) Called at: by:??Results read back by same. Critical Result(s) Called at: by:??Results read back by same. Critical Result(s) Called at: by:??Results read back by same. Performed By: #### L 503.6030, L503.6550, L501.9520, L506.0400, L501.14867, L500.4050, L3300.6900, L500.4100, L100.0100 #### [facility] [address] [facility] [place], [address] Electrocardiogram reportOrde red By: Alok Andrews on 05-01-2025 [address] [facility] Cardiovascular Services [address] [place] [address] 12 Lead EKG 05/01/25 1437 MR#: [id number] Acct: [id number] Name: PJ BILLS Rep #:[id number] : 1970 54 From: Alok bay MD Attending Dr: Status: DEP E R Ordering Dr: Alexandru Lee MD Date: Location: ED Sex: M C Admitted: Test Reason : ABN LABS Blood Pressure : */* mmHG Vent. Rate : 56 BPM Atrial Rate : 56 BPM P-R Int : 184 ms QRS Dur : 114 ms QT Int : 460 ms P-R-T Axes : 19 -23 198 degrees QTcB Int : 443 ms Sinus bradycardia Left ventricular hypertrophy with repolarization abnormality ( R in aVL , Hugh product ) Abnormal ECG Confirmed by Alok Andrews ([id number]), online editor MIKA VELA ([id number]) on :47:11 AM Referred By: Confirmed By: Alok Andrews 05/03/25 0547 Date _ Alok Andrews MD CC: [employer] Isabel Stinson; Dr. Alexandru Lee MD ~ Signed [facility] Other Phone: Emergency Department Summary on 05-01-2025 Emergency Department Summary [facility] Medical Records Department [address] [place] [address] Emergency Department Summary 05/01/25 MR#: [id number] Acct: [id number] Name: PJ BILLS Rep #: [id number] : 1970 54 From: Alexandru Lee MD PCP: FAVIOLA Gomez Status:DEP ER Location: ED HPI History of Present Illness Chief Complaint: Abn Labs Narrative Narrative: 54-year-old male presents with his because of abnormal labs. It was reported that he had a low potassium. They relate history that he has not seen a doctor in quite some time. They went on for last approximately 5 days ago, and had lab work drawn yesterday. They saw a provider at the [facility]. They were told today that he had a low potassium and that he needed to report to the ED. Patient is asymptomatic with this. He does not feel any heart palpitations, denies any weakness. He does not take any diuretics, takes no medications. He did state that he had a few episodes of diarrhea within the last week. [facility] Medical History Borderline diabetes Home Medications ???Medication ???Instructions ???Recorded ???Last Taken ???Type potassium chloride 20 mEq 40 meq (2 x 20 mEq) PO DAILY #10 0 05/01/25 Unknown Rx tablet,extended TABLETS release(part/cryst) (Klor-Con M) Allergy/AdvReac Type Severity Reaction Status Date / Time No Known Allergies Allergy Verified 05/01/25 12:13 Social History Smoking Status: Never smoker ROS ROS ED ROS Narrative Review of system is negative for generalized weakness, heart palpitations, denies any symptoms. Asymptomatic. States feels well. Did have diarrhea that is resolved over the last week. EXAM Physical Exam Narrative Exam Narrative: Afebrile. Vital signs noted. Nontoxic-appearing. Cardiovascular examination reveals regular rate and rhythm. Lungs are clear to auscultation bilaterally. Abdomen is soft and nontender with positive bowel sounds, no guarding or rebound. Neurological examination nonfocal, nonlateralizing. Moves all extremities. No noted pedal edema. Const Vital Signs: 05/01/25 12:10 05/01/25 13:18 05/01/25 13:20 Temperature 97.8 F 98 F Temperature Source Oral Oral Pulse Rate 70 72 Respiratory Rate 18 12 Respiratory Effort Normal Respiratory Pattern Normal Blood Pressure 181/103 H 163/87 H Blood Pressure Mean 129 112 Pulse Ox 100 96 Oxygen Delivery Method Room Air Room Air 05/01/25 14:00 05/01/25 15:34 05/01/25 16:13 Temperature 98.1 F 98 F Temperature Source Oral Oral Pulse Rate 60 72 Respiratory Rate 14 12 Respiratory Effort Respiratory Pattern Blood Pressure 181/92 H 166/97 H 166/97 H Blood Pressure Mean 121 120 120 Pulse Ox 98 98 Oxygen Delivery Method Room Air Room Air 05/01/25 17:05 05/01/25 17:06 05/01/25 17:24 Temperature 98.2 F Temperature Source Oral Pulse Rate 62 60 57 L Respiratory Rate 17 14 16 Respiratory Effort Respiratory Pattern Blood Pressure 186/106 H 186/106 H 179/97 H Blood Pressure Mean 128 132 122 Pulse Ox 99 Oxygen Delivery Method Room Air 05/01/25 17:25 05/01/25 18:26 05/01/25 18:29 Temperature 98 F Temperature Source Oral Pulse Rate 77 74 Respiratory Rate 16 14 Respiratory Effort Respiratory Pattern Blood Pressure 179/97 H 171/95 H 171/94 H Blood Pressure Mean 124 117 119 Pulse Ox 83 95 Oxygen Delivery Method Room Air 05/01/25 20:14 05/01/25 21:00 05/01/25 21:43 Temperature 97.9 F Temperature Source Pulse Rate 57 L 59 L 59 L Respiratory Rate 15 15 15 Respiratory Effort Respiratory Pattern Blood Pressure 158/90 H Blood Pressure Mean 112 Pulse Ox 100 Oxygen Delivery Method MDM MDM MDM Narrative Medical decision making narrative: Differential diagnosis includes but not limited to laboratory error versus potassium loss from diarrhea versus hypokalemia from acute renal failure. I did review his outpatient laboratory work and he had a normal creatinine and his potassium was low at 2.5. I reviewed his CBC that was obtained per protocol and is grossly unremarkable except for hematocrit 38.7. Normal white count of 5.4, hemoglobin 14.1. CMP is significant for potassium of 2.5 with BUN normal at 13 and creatinine 0.75. LFTs are grossly unremarkable. I added a magnesium given his repeat potassium being low at 2.5. It is normal at 1.9. At this point in time, he was given oral potassium of 40 mill equivalents, as well as 40 mill equivalents intravenously. I feel he can be discharged to follow-up with further potassium supplementation orally and repeat potassium check by his primary care (more content not included)... Normal [facility] Eosinophil percentageOrdered By: Alexandru Lee on 05-01-2025 Eosinophils/100 WBC (Bld) 2.0 % 0-5 [facility] Erythrocyte distribution wid th ratioOrdered By: Alexandru Lee on 05-01-2025 Erythrocyte distribution width (RBC) [Ratio] 12.7 % 11.6-14.6 [facility] Erythrocyte distribution wid th standard deviationOrdered By: Alexandru Lee on 05-01-2025 Erythrocyte distribution width (RBC) [Ratio] 39.7 fl 35.1-43.9 [facility] Glomerular filtration rate ( GFR) estimation/1.73 sq m using serum, plasma, or whole bOrdered By: Alexandru Lee on 05-01-2025 GFR/1.73 sq M.predicted among non-blacks MDRD (S/P/Bld) [Vol rate/Area] 107 mL/min/{1.73_m2} >60 [facility] Comment on above: mL/min/1.73m2 CKD-EP I Creatinine Equation (2020) Hematocrit Auto (Bld) [Volum e fraction]Ordered By: Alexandru Lee on 05-01-2025 Hematocrit (Bld) [Volume fraction] 38.7 % Low 40-54 [facility] Hemoglobin measurementOrdere d By: Alexandru Lee on 05-01-2025 Hemoglobin (Bld) [Mass/Vol] 14.1 g/dL 13.0-16.5 [facility] Immature granulocytes/100 WB C Auto (Bld)Ordered By: Alexandru Lee on 05-01-2025 Immature granulocytes/100 WBC (Bld) 0.200 % 0.0-0.9 [facility] Comment on above: IG% - Immature Granu locytes (promyelocytes, myelocytes and metamyelocytes) > 1% indicates that a LEFT SHIFT is Present. Laboratory - Chemistry and C hemistry - challengeOrdered By: Alexandru Lee on 05-01-2025 AST [Catalytic activity/Vol] 23 U/L <38 [facility] MCV (mean corpuscular volume ) determinationOrdered By: Alexandru Lee on 05-01-2025 MCV (RBC) [Entitic vol] 86.2 fL 80-94 [facility] Magnesiumon 05-01-2025 Magnesium [Mass/Vol] 1.9 mg/dL Normal 1.5-2.2 [facility] Comment on above: Performed By: #### L 503.6030, L503.6550, L501.9520, L506.0400, L501.37779, L500.4050, L3300.6900, L500.4100, L100.0100 #### [facility] [place], [address] Magnesium measurement (mass/ volume)Ordered By: Alexandru Lee on 05-01-2025 Magnesium (Unsp spec) [Mass/Vol] 1.9 mg/dL 1.5-2.2 [facility] Mean corpuscular hemoglobin (MCH) determinationOrdered By: Alexandru Lee on 05-01-2025 MCH (RBC) [Entitic mass] 31.4 pg 27.0-32.0 [facility] Mean corpuscular hemoglobin concentration (MCHC) determinationOrdered By: Alexandru Lee on 05-01-2025 MCHC (RBC) [Mass/Vol] 36.4 g/dL High 32-36 [facility] Mean platelet volume determi nationOrdered By: Alexandru Lee on 05-01-2025 Platelet mean volume (Bld) [Entitic vol] 9.6 fL 6.2-12.0 [facility] Monocyte percentageOrdered B y: Alexandru Lee on 05-01-2025 Monocytes/100 WBC (Bld) 11.2 % High 0-10 [facility] Neutrophil percentageOrdered By: Alexandru Lee on 05-01-2025 Neutrophils/100 WBC (Bld) 59.2 % 47-70 [facility] Nucleated red blood cell per centageOrdered By: Alexandru Lee on 05-01-2025 Nucleated RBC/100 WBC (Bld) [Ratio] 0 % 0-5 [facility] Platelet countOrdered By: Duglas Lee on 05-01-2025 Platelets (Bld) [#/Vol] 225 10*3/uL 150-450 [facility] Potassium measurement (mass/ volume)Ordered By: Alexandru Lee on 05-01-2025 Potassium (Unsp spec) [Mass/Vol] 2.5 mmol/L Critically low 3.3-5.1 [facility] Comment on above: Critical Result(s) C alled at: 1542 by: BAKARI PADRON TO MOHAN DAVIDSON Results read back by same. RBC Auto (Bld) [#/Vol]Ordere d By: Alexandru Lee on 05-01-2025 RBC (Bld) [#/Vol] 4.49 10*6/uL Low 4.6-6.2 [facility] Serum creatinine measurement (mass/volume)Ordered By: Alexandru Lee on 05-01-2025 Creatinine [Mass/Vol] 0.75 mg/dL 0.70-1.20 [facility] Serum globulin measurementOr dered By: Alexandru Lee on 05-01-2025 Globulin (S) [Mass/Vol] 2.7 g/dL 2.2-4.2 [facility] Serum glucose measurement (m ass/volume)Ordered By: Alexandru Lee on 05-01-2025 Glucose [Mass/Vol] 169 mg/dL High 70-99 [facility] Serum or plasma alanine sinha otransferase (ALT) measurementOrdered By: Alexandru Lee on 05-01-2025 ALT [Catalytic activity/Vol] 16 U/L <47 [facility] Serum or plasma albumin anai urement (mass/volume)Ordered By: Alexandru Lee on 05-01-2025 Albumin [Mass/Vol] 4.2 g/dL 3.5-5.0 [facility] Serum or plasma albumin/glob ulin mass ratioOrdered By: Alexandru Lee on 05-01-2025 Albumin/Globulin [Mass ratio] 1.5 {ratio} 0.9-2.4 [facility] Serum or plasma alkaline dariana sphatase measurementOrdered By: Alexandru Lee on 05-01-2025 ALP [Catalytic activity/Vol] 94 U/L 40-129 [facility] Serum or plasma calcium anai urement (mass/volume)Ordered By: Alexandru Lee on 05-01-2025 Calcium [Mass/Vol] 9.1 mg/dL 7.6-11.0 [facility] Serum or plasma urea nitroge n measurement (mass/volume)Ordered By: Alexandru Lee on 05-01-2025 Urea nitrogen [Mass/Vol] 13 mg/dL 4-19 [facility] Sodium levelOrdered By: Alexandru Lee on 05-01-2025 Sodium [Moles/Vol] 141 mmol/L 133-145 [facility] Total proteinOrdered By: Carmen Lee on 05-01-2025 Protein [Mass/Vol] 6.8 g/dL 5.9-8.4 [facility] White blood cell (WBC) count Ordered By: Alexandru Lee on 05-01-2025 WBC (Bld) [#/Vol] 5.4 10*3/uL 4.4-11.0 [facility] Absolute lymphocyte countOrd ered By: Isabel Stinson on 04-30-2025 Lymphocytes Auto (Unsp spec) [#/Vol] 1.64 10*3/uL 0.83-4.51 [facility] Absolute neutrophil countOrd ered By: Isabel Stinson on 04-30-2025 Neutrophils (Bld) [#/Vol] 3.3 10*3/uL 2.0-7.7 [facility] Anion gap in Serum or Plasma Ordered By: Isabel Stinson on 04-30-2025 Anion gap [Moles/Vol] 15 mmol/L 5-15 [facility] Automated lymphocyte count a s percentage of total leukocytesOrdered By: Isabel Stinson on 04-30-2025 Lymphocytes/100 WBC Auto (Unsp spec) 28.8 % 19-41 [facility] BUN/creatinine ratioOrdered By: Isabel Stinson on 04-30-2025 Urea nitrogen/Creatinine [Mass ratio] 17.9 mg/mg 10- [facility] Comment on above: Previous reported re sult: 18.0 RATIOEdited by: KOLE on 04/30/25:2115 AMENDED REPORT 04/30/252115 BUN/CRE previously reported as: 18.0 RATIO Basophil percentageOrdered B y: Isabel Stinson on 04-30-2025 Basophils/100 WBC (Bld) 0.5 % 0-1 [facility] Bilirubin, totalOrdered By: Isabel Stinson on 04-30-2025 Bilirubin [Mass/Vol] 0.74 mg/dL 0.00-1.30 [facility] CBC W/Diff, Automatedon 04-09 Absolute Lymph 1.64 X10 3/uL Normal 0.83-4.51 [facility] Comment on above: Performed By: #### L 503.6030, L503.6550, L501.9520, L506.0400, L501.21405, L500.4050, L3300.6900, L500.4100, L100.0100 #### [facility] [address] [place], [address] Absolute Neut 3.3 X10 3/uL Normal 2.0-7.7 [facility] Comment on above: Performed By: #### L 503.6030, L503.6550, L501.9520, L506.0400, L501.47727, L500.4050, L3300.6900, L500.4100, L100.0100 #### [facility] [address] [place], [address] Basophils/100 WBC (Bld) 0.5 % Normal 0-1 [facility] Comment on above: Performed By: #### L 503.6030, L503.6550, L501.9520, L506.0400, L501.80693, L500.4050, L3300.6900, L500.4100, L100.0100 #### [facility] [address] [place], [address] Eosinophils/100 WBC (Bld) 2.1 % Normal 0-5 [facility] Comment on above: Performed By: #### L 503.6030, L503.6550, L501.9520, L506.0400, L501.75071, L500.4050, L3300.6900, L500.4100, L100.0100 #### [facility] [address] [place], [address] Erythrocyte distribution width (RBC) [Ratio] 12.8 % Normal 11.6-14.6 [facility] Comment on above: Performed By: #### L 503.6030, L503.6550, L501.9520, L506.0400, L501.58784, L500.4050, L3300.6900, L500.4100, L100.0100 #### [facility] [address] [place], [address] Hematocrit (Bld) [Volume fraction] 38.1 % Low 40-54 [facility] Comment on above: Performed By: #### L 503.6030, L503.6550, L501.9520, L506.0400, L501.76129, L500.4050, L3300.6900, L500.4100, L100.0100 #### [facility] [address] [place], [address] Hemoglobin (Bld) [Mass/Vol] 13.5 g/dL Normal 13.0-16.5 [facility] Comment on above: Performed By: #### L 503.6030, L503.6550, L501.9520, L506.0400, L501.58118, L500.4050, L3300.6900, L500.4100, L100.0100 #### [facility] [address] [place], [address] IG% 0.200 Normal 0.0-0.9 [facility] Comment on above: Result Comment: IG% - Immature Granulocytes (promyelocytes, myelocytes and metamyelocytes) > 1% indicates that a LEFT SHIFT is Present. Performed By: #### L 503.6030, L503.6550, L501.9520, L506.0400, L501.92456, L500.4050, L3300.6900, L500.4100, L100.0100 #### [facility] [address] [place], [address] Lymphocytes/100 WBC (Bld) 28.8 % Normal 19-41 [facility] Comment on above: Performed By: #### L 503.6030, L503.6550, L501.9520, L506.0400, L501.74244, L500.4050, L3300.6900, L500.4100, L100.0100 #### [facility] [address] [place], [address] MCH (RBC) [Entitic mass] 30.7 pg Normal 27.0-32.0 [facility] Comment on above: Performed By: #### L 503.6030, L503.6550, L501.9520, L506.0400, L501.77297, L500.4050, L3300.6900, L500.4100, L100.0100 #### [facility] [address] [place], [address] MCHC (RBC) [Mass/Vol] 35.4 g/dL Normal 32-36 [facility] Comment on above: Performed By: #### L 503.6030, L503.6550, L501.9520, L506.0400, L501.86726, L500.4050, L3300.6900, L500.4100, L100.0100 #### [facility] [address] [place], [address] MCV (RBC) [Entitic vol] 86.6 fL Normal 80-94 [facility] Comment on above: Performed By: #### L 503.6030, L503.6550, L501.9520, L506.0400, L501.03999, L500.4050, L3300.6900, L500.4100, L100.0100 #### [facility] [address] [place], [address] Monocytes/100 WBC (Bld) 10.4 % High 0-10 [facility] Comment on above: Performed By: #### L 503.6030, L503.6550, L501.9520, L506.0400, L501.39324, L500.4050, L3300.6900, L500.4100, L100.0100 #### [facility] [address] [place], [address] Neutrophils/100 WBC (Bld) 58.0 % Normal 47-70 [facility] Comment on above: Performed By: #### L 503.6030, L503.6550, L501.9520, L506.0400, L501.14872, L500.4050, L3300.6900, L500.4100, L100.0100 #### [facility] [address] [place], [address] Nucleated RBC (Bld) [#/Vol] 0 10*3/uL Normal 0-5 [facility] Comment on above: Performed By: #### L 503.6030, L503.6550, L501.9520, L506.0400, L501.20998, L500.4050, L3300.6900, L500.4100, L100.0100 #### [facility] [address] [place], [address] Platelet mean volume (Bld) [Entitic vol] 10.6 fL Normal 6.2-12.0 [facility] Comment on above: Performed By: #### L 503.6030, L503.6550, L501.9520, L506.0400, L501.98274, L500.4050, L3300.6900, L500.4100, L100.0100 #### [facility] [address] [place], [address] Platelets (Bld) [#/Vol] 251 10*3/uL Normal 150-450 [facility] Comment on above: Performed By: #### L 503.6030, L503.6550, L501.9520, L506.0400, L501.31535, L500.4050, L3300.6900, L500.4100, L100.0100 #### [facility] [address] [place], [address] RBC (Bld) [#/Vol] 4.40 10*6/uL Low 4.6-6.2 [facility] Comment on above: Performed By: #### L 503.6030, L503.6550, L501.9520, L506.0400, L501.26869, L500.4050, L3300.6900, L500.4100, L100.0100 #### [facility] [address] [place], [address] RDW SD 39.9 fl Normal 35.1-43.9 [facility] Comment on above: Performed By: #### L 503.6030, L503.6550, L501.9520, L506.0400, L501.26446, L500.4050, L3300.6900, L500.4100, L100.0100 #### [facility] [address] [place], [address] WBC (Bld) [#/Vol] 5.7 10*3/uL Normal 4.4-11.0 [facility] Comment on above: Performed By: #### L 503.6030, L503.6550, L501.9520, L506.0400, L501.08071, L500.4050, L3300.6900, L500.4100, L100.0100 #### [facility] [address] [place], [address] Calculated very low density lipoprotein (VLDL) cholesterol measurementOrdered By: Isabel Stinson on 04-30-2025 Calculated very low density lipoprotein (VLDL) cholesterol measurement 12 mg/dL 5-40 [facility] Carbon dioxide, total [Moles /volume] in Central venous bloodOrdered By: Isabel Stinson on 04-30-2025 CO2 [Moles/Vol] 28.9 mmol/L 21.0-32.0 [facility] Chloride assayOrdered By: Tom Stinson on 04-30-2025 Chloride [Moles/Vol] 97 mmol/L Low 98-108 [facility] Eosinophil percentageOrdered By: Isabel [facility] on 04-30-2025 Eosinophils/100 WBC (Bld) 2.1 % 0-5 [facility] Erythrocyte distribution wid th ratioOrdered By: Isabeldemetra Stinson on 04-30-2025 Erythrocyte distribution width (RBC) [Ratio] 12.8 % 11.6-14.6 [facility] Erythrocyte distribution wid th standard deviationOrdered By: Isabeldemetra Stinson on 04-30-2025 Erythrocyte distribution width (RBC) [Ratio] 39.9 fl 35.1-43.9 [facility] Ferritinon 04-30-2025 Ferritin [Mass/Vol] 495 ng/mL High 37-417 [facility] Comment on above: Performed By: #### L 503.6030, L503.6550, L501.9520, L506.0400, L501.33556, L500.4050, L3300.6900, L500.4100, L100.0100 #### [facility] [address] [place], [address] Free T3on 04-30-2025 Free T3 [Mass/Vol] 3.1 pg/mL Normal 2.18-3.98 [facility] Comment on above: Performed By: #### L 503.6030, L503.6550, L501.9520, L506.0400, L501.75795, L500.4050, L3300.6900, L500.4100, L100.0100 #### [facility] [address] [place], [address] Free H4Blwspko By: Isabel blevins on 04-30-2025 Free T3 [Mass/Vol] 3.1 pg/mL 2.18-3.98 [facility] Glomerular filtration rate ( GFR) estimation/1.73 sq m using serum, plasma, or whole bOrdered By: Isabel Stinson on 04-30-2025 GFR/1.73 sq M.predicted among non-blacks MDRD (S/P/Bld) [Vol rate/Area] 89 mL/min/{1.73_m2} >60 [facility] Comment on above: mL/min/1.73m2 CKD-EP I Creatinine Equation (2020) Hematocrit Auto (Bld) [Volum e fraction]Ordered By: Isabel Stinson on 04-30-2025 Hematocrit (Bld) [Volume fraction] 38.1 % Low 40-54 [facility] Hemoglobin measurementOrdere d By: Isabel Stinson on 04-30-2025 Hemoglobin (Bld) [Mass/Vol] 13.5 g/dL 13.0-16.5 [facility] Immature granulocytes/100 WB C Auto (Bld)Ordered By: Isabel Stinson on 04-30-2025 Immature granulocytes/100 WBC (Bld) 0.200 % 0.0-0.9 [facility] Comment on above: IG% - Immature Granu locytes (promyelocytes, myelocytes and metamyelocytes) > 1% indicates that a LEFT SHIFT is Present. Iron measurement (mass/mass) Ordered By: Isabel Stinson on 04-30-2025 Iron (Unsp spec) [Mass/Mass] 51 ug/dL Low 65-175 [facility] Iron+Iron Binding Capacityon 04-30-2025 Iron [Mass/Vol] 51 ug/dL Low 65-175 [facility] Comment on above: Performed By: #### L 503.6030, L503.6550, L501.9520, L506.0400, L501.72558, L500.4050, L3300.6900, L500.4100, L100.0100 #### [facility] [address] [place], [address] IRON SATURATION 19.0 Normal 9-55 [facility] Comment on above: Performed By: #### L 503.6030, L503.6550, L501.9520, L506.0400, L501.97182, L500.4050, L3300.6900, L500.4100, L100.0100 #### [facility] [address] [place], [address] TIBC 270 ug/dL Normal 250-450 [facility] Comment on above: Performed By: #### L 503.6030, L503.6550, L501.9520, L506.0400, L501.69620, L500.4050, L3300.6900, L500.4100, L100.0100 #### [facility] [address] [place], [address] UIBC 219 ug/dL Low 228-428 [facility] Comment on above: Performed By: #### L 503.6030, L503.6550, L501.9520, L506.0400, L501.05892, L500.4050, L3300.6900, L500.4100, L100.0100 #### [facility] [address] [place], [address] LDL calc ser/plasOrdered By: Isabel Stinson on 04-30-2025 Cholesterol in LDL [Mass/Vol] 70 mg/dL [facility] Comment on above: Ooappnoywc=760-836 m g/dL & Higher Fmzf=872 mg/dL or greaterFriedwald Equation for LDL-C Laboratory - Chemistry and C hemistry - challengeOrdered By: Isabel Stinson on 04-30-2025 AST [Catalytic activity/Vol] 24 U/L <38 [facility] Lipid Profileon 04-30-2025 CHOL:HDL 2.83 Normal [facility] Comment on above: Performed By: #### L 503.6030, L503.6550, L501.9520, L506.0400, L501.17094, L500.4050, L3300.6900, L500.4100, L100.0100 #### [facility] [address] [place], [place], [id number] (895) Cholesterol [Mass/Vol] 127 mg/dL Normal <=200 [facility] Comment on above: Result Comment: Chol esterol level, Desirable <200 mg/dL Borderline high cholesterol 200-239 mg/dL High cholesterol >=240 mg/dL Recommendations of the NCEP Adult Treatment Panel for the following risk-cutoff thresholds for the [place] population. Performed By: #### L 503.6030, L503.6550, L501.9520, L506.0400, L501.65811, L500.4050, L3300.6900, L500.4100, L100.0100 #### [facility] [address] [place], [place], [id number] (883) Cholesterol in HDL [Mass/Vol] 45 mg/dL Normal [facility] Comment on above: Result Comment: Leidy onal Cholesterol Education Program (NCEP) guidelines: <40 mg/dL: Low HDL-cholesterol (major risk factor for CHD) >= 60 mg/dL: High HDL-cholesterol (negative risk factor for CHD) HDL-cholesterol is affected by a number of factors, e.g. smoking, exercise, hormones, sex and age. Performed By: #### L 503.6030, L503.6550, L501.9520, L506.0400, L501.52660, L500.4050, L3300.6900, L500.4100, L100.0100 #### [facility] [address] [place], [address] Cholesterol in LDL [Mass/Vol] 70 mg/dL Normal [facility] Comment on above: Result Comment: Bord owfauv=932-266 mg/dL Higher Xhcs=499 mg/dL or greater Friedwald Equation for LDL-C Performed By: #### L 503.6030, L503.6550, L501.9520, L506.0400, L501.82885, L500.4050, L3300.6900, L500.4100, L100.0100 #### [facility] [address], [address] Cholesterol in VLDL [Mass/Vol] 12 mg/dL Normal 5-40 [facility] Comment on above: Performed By: #### L 503.6030, L503.6550, L501.9520, L506.0400, L501.70140, L500.4050, L3300.6900, L500.4100, L100.0100 #### [facility] [address] [place], [address] Triglyceride [Mass/Vol] 61 mg/dL Normal [facility] Comment on above: Result Comment: The drugs N-Acetylcysteine and Metamizole may falsely depress this assay. Normal range: <150 mg/dL Borderline High: 150-199 mg/dL High: 200-499 mg/dL Very High: >500 mg/dL Performed By: #### L 503.6030, L503.6550, L501.9520, L506.0400, L501.54905, L500.4050, L3300.6900, L500.4100, L100.0100 #### [facility] [address] [place], [address] MCV (mean corpuscular volume ) determinationOrdered By: Isabel Stinson on 04-30-2025 MCV (RBC) [Entitic vol] 86.6 fL 80-94 [facility] Mean corpuscular hemoglobin (MCH) determinationOrdered By: Isabel Stinson on 04-30-2025 MCH (RBC) [Entitic mass] 30.7 pg 27.0-32.0 [facility] Mean corpuscular hemoglobin concentration (MCHC) determinationOrdered By: Isabel Stinson on 04-30-2025 MCHC (RBC) [Mass/Vol] 35.4 g/dL 32-36 [facility] Mean platelet volume determi nationOrdered By: Isabel Stinson on 04-30-2025 Platelet mean volume (Bld) [Entitic vol] 10.6 fL 6.2-12.0 [facility] Monocyte percentageOrdered B y: Isabel Stinson on 04-30-2025 Monocytes/100 WBC (Bld) 10.4 % High 0-10 [facility] Neutrophil percentageOrdered By: Isabel Stinson on 04-30-2025 Neutrophils/100 WBC (Bld) 58.0 % 47-70 [facility] No Panel InformationOrdered By: Isabel Stinson on 04-30-2025 Unsaturated Iron Binding Capacity 219 ug/dL Low 228-428 [facility] Nucleated red blood cell per centageOrdered By: Isabel Stinson on 04-30-2025 Nucleated RBC/100 WBC (Bld) [Ratio] 0 % 0-5 [facility] Platelet countOrdered By: Tom Stinson on 04-30-2025 Platelets (Bld) [#/Vol] 251 10*3/uL 150-450 [facility] Potassium measurement (mass/ volume)Ordered By: Isabel Stinson on 04-30-2025 Potassium (Unsp spec) [Mass/Vol] 2.5 mmol/L Critically low 3.3-5.1 [facility] Comment on above: Critical Result(s) C alled at: by: Results read back by same.Critical Result(s) Called at: by: Results read back by same.Critical Result(s) Called at: by: Results read back by same. Critical Result(s) Called at: by: Results read back by same.Critical Result(s) Called at: by: Results read back by same. Critical Result(s) Called at: by: Results read back by same.Critical Result(s) Called at: by: Results read back by same.CALLED CRITICAL TO NAHUM WELSH @0856 05/01/2025Previous reported result: 2.5 mmol/LEdited by: AUTOINS on 05/01/25:0041 AMENDED REPORT 05/01/251 K previously reported as: 2.5 *L mmol/L Critical Result(s) Called at: by: Results read back by same.Critical Result(s) Called at: by: Results read back by same.Critical Result(s) Called at: by: Results read back by same.Previous reported result: 2.5 mmol/LEdited by: AUTOINS on 05/01/25:0857 AMENDED REPORT 05/01/25 0857 K previously reported as: 2.5 *L mmol/L Critical Result(s) Called at: by: Results read back by same.Critical Result(s) Called at: by: Results read back by same.Critical Result(s) Called at: by: Results read back by same. Critical Result(s) Called at: by: Results read back by same.Critical Result(s) Called at: by: Results read back by same. RBC Auto (Bld) [#/Vol]Ordere d By: Isabel Stinson on 04-30-2025 RBC (Bld) [#/Vol] 4.40 10*6/uL Low 4.6-6.2 [facility] Screening total cholesterol/ high density lipoprotein (HDL) cholesterol ratioOrdered By: Isabel Stinson on 04-30-2025 Cholesterol.total/Leila sterol in HDL [Mass ratio] 2.83 {ratio} [facility] Serum creatinine measurement (mass/volume)Ordered By: Isabel Stinson on 04-30-2025 Creatinine [Mass/Vol] 1.00 mg/dL 0.70-1.20 [facility] Serum globulin measurementOr dered By: Isabel Stinson on 04-30-2025 Globulin (S) [Mass/Vol] 3.0 g/dL 2.2-4.2 [facility] Serum glucose measurement (m ass/volume)Ordered By: Isabel Stinson on 04-30-2025 Glucose [Mass/Vol] 168 mg/dL High 70-99 [facility] Serum or plasma alanine sinha otransferase (ALT) measurementOrdered By: Isabel Stinson on 04-30-2025 ALT [Catalytic activity/Vol] 20 U/L <47 [facility] Serum or plasma albumin anai urement (mass/volume)Ordered By: Isabel Stinson on 04-30-2025 Albumin [Mass/Vol] 4.3 g/dL 3.5-5.0 [facility] Serum or plasma albumin/glob ulin mass ratioOrdered By: Isabeldemetra Stinson on 04-30-2025 Albumin/Globulin [Mass ratio] 1.4 {ratio} 0.9-2.4 [facility] Serum or plasma alkaline dariana sphatase measurementOrdered By: Isabel Stinson 04-30-2025 ALP [Catalytic activity/Vol] 95 U/L 40-129 [facility] Serum or plasma calcium anai urement (mass/volume)Ordered By: Isabel Stinson 04-30-2025 Calcium [Mass/Vol] 9.2 mg/dL 7.6-11.0 [facility] Serum or plasma cholesterol in HDL measurement (mass/volume)Ordered By: Isabel Stinson 04-30-2025 Cholesterol in HDL [Mass/Vol] 45 mg/dL >40 [facility] Comment on above: National Cholesterol Education Program (NCEP) guidelines:<40 mg/dL: Low HDL-cholesterol (major risk factor for CHD)>= 60 mg/dL: High HDL-cholesterol (negative risk factor for CHD)HDL-cholesterol is affected by a number of factors, e.g. smoking, exercise, hormones, sex and age. Serum or plasma cholesterol measurement (mass/volume)Ordered By: Isabel Stinson on 04-30-2025 Cholesterol [Mass/Vol] 127 mg/dL <201 [facility] Comment on above: Cholesterol level, D esirable <200 mg/dLBorderline high cholesterol 200-239 mg/dLHigh cholesterol >=240 mg/dLRecommendations of the NCEP Adult Treatment Panel for the following risk-cutoff thresholds for the [place] population. Serum or plasma ferritin pillo surement (mass/volume)Ordered By: Isabel Stinson on 04-30-2025 Ferritin [Mass/Vol] 495 ng/mL High 37-417 [facility] Serum or plasma iron saturat ion measurement (mass fraction)Ordered By: Isabel Stinson on 04-30-2025 Iron saturation [Mass fraction] 19.0 % 9-55 [facility] Serum or plasma thyroperoxid ase antibody assay (units/volume)Ordered By: Isabel Stinson on 04-30-2025 TPO Ab Qn [IU]/mL 0-34 [facility] Comment on above: Performed at: [address] [id number] Director: Harry Aguirre PhD, Phone: [phone] Serum or plasma urea nitroge n measurement (mass/volume)Ordered By: Isabel Stinson on 04-30-2025 Urea nitrogen [Mass/Vol] 18 mg/dL 4-19 [facility] Sodium levelOrdered By: Brittany Stinson on 04-30-2025 Sodium [Moles/Vol] 141 mmol/L 133-145 [facility] T4 Free Directon 04-30-2025 T4 FREE DIRECT 1.30 ng/dL Normal 0.76-1.46 [facility] Comment on above: Performed By: #### L 503.6030, L503.6550, L501.9520, L506.0400, L501.30324, L500.4050, L3300.6900, L500.4100, L100.0100 #### [facility] [address] [place], [place], [id number] T4 freeOrdered By: Isabel blevins on 04-30-2025 Free T4 [Mass/Vol] 1.30 ng/dL 0.76-1.46 [facility] TSH DL <= 0.005 mIU/L QnOrde red By: Isabel Stinson on 04-30-2025 TSH Qn 1.110 uIU/mL 0.300-4.200 [facility] Thyroid Stim Hormone (TSH)on 04-30-2025 TSH 1.110 uIU/mL Normal 0.300-4.200 [facility] Comment on above: Performed By: #### L 503.6030, L503.6550, L501.9520, L506.0400, L501.69530, L500.4050, L3300.6900, L500.4100, L100.0100 #### [facility] [place] [address], [address] Total proteinOrdered By: Devang Stinson on 04-30-2025 Protein [Mass/Vol] 7.3 g/dL 5.9-8.4 [facility] Triglycerides measurementOrd ered By: Isabel Stinson on 04-30-2025 Triglyceride [Mass/Vol] 61 mg/dL <199 [facility] Comment on above: The drugs N-Acetylcy steine and Metamizole may falsely depress this assay. Normal range: <150 mg/dLBorderline High: 150-199 mg/dLHigh: 200-499 mg/dLVery High: >500 mg/dL White blood cell (WBC) count Ordered By: Isabel Stinson on 04-30-2025 WBC (Bld) [#/Vol] 5.7 10*3/uL 4.4-11.0 [facility] No Panel InformationOrdered By: Brad Maravilla on 03-10-2023 Percent Free Prostate Specific Ag 1.16 ng/mL N/A [facility] Comment on above: [employer] ECLIA methodol ogy. Prostate Specific Ag, Ultra-Sensitv 5.180 ng/mL 0.000-4.000 [facility] Comment on above: [employer] ECLIA methodol ogy.According to the [place] [employer], Serum PSAshould decrease and remain [...] PSA/Total PSA [Mass fraction] 22.4 % . [facility] Comment on above: The table below list [...] for any other population of men.Performed at: [id number] [id number] Director: Harry Aguirre PhD, Phone: [phone] No Panel Informationon 03-05 Percent Free Prostate Specific Ag 0.97 ng/mL N/A [facility] Work Phone: Comment on above: [employer] ECLIA methodol ogy. Prostate Specific Antigen Total 4.2 ng/mL 0.0-4.0 [facility] Work Phone: Comment on above: CalmIA methodol ogy.According to the [place] [employer], Serum PSAshould decrease and remain [...] PSA/Total PSA [Mass fraction] 23.1 % . [facility] Work Phone: Comment on above: The table [...] for any other population of men.Performed at: [address] [id number] Director: Harry Aguirre PhD, Phone: [phone] Vital Signs Date Time Vital Sign Value Performing Clinician Faci opal 05-01-2025 21:43-0400 Body temperature 97.9 [degF] Isabel Dariushof [employer] Work Phone: [phone] [place] [address] 05-01-2025 21:43-0400 Diastolic blood pressure 90 mm[Hg] Isabel Dariushof [employer] Work Phone: [phone] [place] [address] 05-01-2025 21:43-0400 Heart rate 59 /min Isabel Dariushof [employer] Work Phone: [phone] [place] [address] 05-01-2025 21:43-0400 Respiratory rate 15 /min Isabel Tannhof [employer] Work Phone: [phone] [place] [address] 05-01-2025 21:43-0400 SaO2% (BldA) [Mass fraction] 100 % Isabel Dariushof [employer] Work Phone: [phone] [place] [address] 05-01-2025 21:43-0400 Systolic blood pressure 158 mm[Hg] Isabel Tannhof [employer] Work Phone: [phone] [place] [address] 05-01-2025 12:10-0400 Body height 185.42 cm Isabel Tannhof [employer] Work Phone: [phone] [place] [address] 05-01-2025 12:10-0400 Body mass index (BMI) [Ratio] 27.1 kg/m2 Isabel Dariushof [employer] Work Phone: [phone] [place] [address] 05-01-2025 12:10-0400 Body weight 93.21 kg Isabel Stinson [employer] Work Phone: [facility] Encounters Encounter Date Encounter Type Care Provider Facility Start: 06-03-2025 ambulatory [facility] Facility :[facility] Start: 05-28-2025 End: 05-28-2025 ambulatory Isabel [facility] Facility:[facility] Start: 05-24-2025 ambulatory PJ ROSALES Facility :[facility] Start: 05-14-2025 End: 05-14-2025 ambulatory Brad Maravilla Facility:[facility] Start: 05-06-2025 Patient encounter procedure Terrence Ribeiro [employer] -[facility] [place] Work Phone: Start: 05-06-2025 End: 05-06-2025 ambulatory ISIS GERSON Facility:[facility] Start: 05-06-2025 End: 05-06-2025 ambulatory Westleybarry Gema VSC Facility:[facility] Start: 05-01-2025 End: 05-01-2025 Emergency department patient visit Dr. Alexandru Lee MD -Emergency Department Work Phone: Start: 04-30-2025 End: 04-30-2025 ambulatory Isabel Stinson [employer] Work Phone: -[facility] [place] Start: 04-30-2025 End: 04-30-2025 Patient encounter procedure Isabel Stinson [employer] -[facility] [place] Work Phone: Start: 04-30-2025 End: 04-30-2025 ambulatory Isabeldemetra Mccoymal Facility:[facility] Start: 03-10-2023 End: 03-10-2023 ambulatory [facility] Work Phone: Start: 03-10-2023 End: 03-10-2023 Patient encounter procedure [facility] [place] Work Phone: Start: 03-05-2022 End: 03-05-2022 Patient encounter procedure [facility] [place] Procedures Date Procedure Procedure Detail Performing Clinician Start: 05-06-2025 Assay of prostate sp ecific antigen total Isabel Stinson [employer] Work Phone: Comment on above: This test was perfor med using the [employer] tPSA method. Measured values of a patient sample can vary depending on the testing procedure used. PSA values determined on patient samples by different testing procedures cannot be used interchangeably. If there is a change in PSA assays while monitoring therapy, sequential testing should be performed to confirm baseline values. Start: 05-06-2025 Prostate specific an tigen measurement Isabel Bhakta [employer] Work Phone: Comment on above: This test was perfor med using the [employer] tPSA method. Measured values of a patient sample can vary depending on the testing procedure used. PSA values determined on patient samples by different testing procedures cannot be used interchangeably. If there is a change in PSA assays while monitoring therapy, sequential testing should be performed to confirm baseline values. Start: 05-01-2025 Estimated creatinine clearance Isabel Bhakta [employer] Work Phone: Start: 04-30-2025 Total iron binding capacity measurement Isabel Stinson [employer] Work Phone: Plan of Treatment Date Care Activity Detail Author Start: 05-06-2025 Patient encounter procedure Registered Clinical -[facility] [place] Work Phone: Start: 05-01-2025 [facility] Patient Education ED Hypokalemia [facility] Work Phone: Payers Date Payer Category Payer Self-pay [id number] 2024 Unknown [id number] Private Health Insurance [id number] Unknown [id number] 2.16.8 [id number] Unknown [id number] 2.16.8 [id number] Unknown [id number] 2.16.8 [id number] Unknown [id number] 2.16.8 [id number] Unknown [id number] 2.16.8 [id number] Unknown [id number] 2.16.8 [id number] Social History Date Type Detail Facility Start: 12-25-2020 Tobacco smoking stat [facility] Unknown if ever smoked [facility] Start: 12-25-2020 Non-smoker [facility] Start: 1970 Sex Assigned At Male [facility] Start: 05-01-2025 Tobacco smoking stat [facility] Never smoked tobacco (finding) [facility] Sex Male [facility] Progress note 05-06-2025 Note Date & Type Note Facility 05-06-2025 Note HNO ID: [id number] Author: ISIS NIETO APRN.[employer] Service: ? Author Type: Nurse Practitioner Type: Progress Notes Filed: 05/06/2025 16:06 Note Text: HISTORY AND PHYSICAL Javier Bills : 1970 REFERRING PHYSICIAN: Isabel Stinson [facility] [address] CHIEF COMPLAINT: Patient presents with: Consult: Due for colonoscopy HPI: Javier is a 54 year old male referred for endoscopy. Javier notes due for screening colonoscopy. Javier denies abdominal pain. Javier denies diarrhea. Javier denies constipation. Javier denies a change in bowel habits. Javier denies melena. Javier denies bright red blood per rectum. Javier notes family history of colon issues. Maternal grandfather with colon cancer Javeir denies heartburn. Javier denies dysphagia. Javier has not undergone prior endoscopy. Current Outpatient [...] SURGICAL HISTORY Procedure Laterality Date TONSILLECTOMY PRIMARY/SECONDARY Tonsillectomy FAMILY HISTORY Problem Relation Age of [...] failure to complete the endoscopy and perforation. Javier had the opportunity to ask questions concerning the planned endoscopy. Javier freely consents to surgery. I plan to use miraLAX bowel preparation I have explained to the patient the difference between IV conscious sedation and MAC a (more content not included)... [facility] Discharge summary 05-01-2025 Note Date & Type Note Facility 05-01-2025 Discharge summary [facility] Discharge summary 05-01-2025 Note Date & Type Note Facility 05-01-2025 Discharge summary Note Date/Time May 01, 2025 9:43pm [facility] Medical Records Department [address] [place] [address] Emergency Department Summary 05/01/25 MR#: [id number] Acct: [id number] Name: PJ BILLS Rep #:[id number] : 1970 54 From: Alexandru Lee MD PCP: FAVIOLA Gomez Status:DEP E R Location: ED HPI History of Present Illness Chief Complaint: Abn Labs Narrative Narrative: 54-year-old male presents with his because of abnormal labs. It was reported that he had a low potassium. They relate history that he has not seen a doctor in quite some time. They went on for last approximately 5 days ago, and had lab work drawn yesterday. They saw a provider at the [facility]. They were told today that he had a low potassium and that he needed to report to the ED. Patient is asymptomatic with this. He does not feel any heart palpitations, denies any weakness. He does not take any diuretics, takes no medications. He did state that he had a few episodes of diarrhea within the last week. [facility] Medical History Borderline diabetes Home Medications ?Medication ?Instructions ?Recorded ?Last Taken ?Type potassium chloride 20 mEq 40 meq (2 x 20 mEq) PO DAILY #10 05/01/25 Unknown Rx tablet,extended TABLETS release(part/cryst) (Klor-Con M) Allergy/AdvReac Type Severity Reaction Status Date / Time No Known Allergies Allergy Verified 05/01/25 12:13 Social History Smoking Status: Never smoker ROS ROS ED ROS Narrative Review of system is negative for generalized weakness, heart palpitations, denies any symptoms. Asymptomatic. States feels well. Did have diarrhea that is resolved over the last week. EXAM Physical Exam Narrative Exam Narrative: Afebrile. Vital signs noted. Nontoxic-appearing. Cardiovascular examination reveals regular rate and rhythm. Lungs are clear to auscultation bilaterally. Abdomen is soft and nontender with positive bowel sounds, no guarding or rebound. Neurological examination nonfocal, nonlateralizing. Moves all extremities. No noted pedal edema. Const Vital Signs: 05/01/25 12:10 05/01/25 13:18 05/01/25 13:20 Temperature 97.8 F 98 F Temperature Source Oral Oral Pulse Rate 70 72 Respiratory Rate 18 12 Respiratory Effort Normal Respiratory Pattern Normal Blood Pressure 181/103 H 163/87 H Blood Pressure Mean 129 112 Pulse Ox 100 96 Oxygen Delivery Method Room Air Room Air 05/01/25 14:00 05/01/25 15:34 05/01/25 16:13 Temperature 98.1 F 98 F Temperature Source Oral Oral Pulse Rate 60 72 Respiratory Rate 14 12 Respiratory Effort Respiratory Pattern Blood Pressure 181/92 H 166/97 H 166/97 H Blood Pressure Mean 121 120 120 Pulse Ox 98 98 Oxygen Delivery Method Room Air Room Air 05/01/25 17:05 05/01/25 17:06 05/01/25 17:24 Temperature 98.2 F Temperature Source Oral Pulse Rate 62 60 57 L Respiratory Rate 17 14 16 Respiratory Effort Respiratory Pattern Blood Pressure 186/106 H 186/106 H 179/97 H Blood Pressure Mean 128 132 122 Pulse Ox 99 Oxygen Delivery Method Room Air 05/01/25 17:25 05/01/25 18:26 05/01/25 18:29 Temperature 98 F Temperature Source Oral Pulse Rate 77 74 Respiratory Rate 16 14 Respiratory Effort Respiratory Pattern Blood Pressure 179/97 H 171/95 H 171/94 H Blood Pressure Mean 124 117 119 Pulse Ox 83 95 Oxygen Delivery Method Room Air 05/01/25 20:14 05/01/25 21:00 05/01/25 21:43 Temperature 97.9 F Temperature Source Pulse Rate 57 L 59 L 59 L Respiratory Rate 15 15 15 Respiratory Effort Respiratory Pattern Blood Pressure 158/90 H Blood Pressure Mean 112 Pulse Ox 100 Oxygen Delivery Method MDM MDM MDM Narrative Medical decision making narrative: Differential diagnosis includes but not limited to laboratory error versus potassium loss from diarrhea versus hypokalemia from acute renal failure. I didreview his outpatient laboratory work and he had a normal creatinine and his potassium was low at 2.5. I reviewed his CBC that was obtained per protocol and is grossly unremarkable except for hematocrit 38.7. Normal white count of 5.4, hemoglobin 14.1. CMP issignificant for potassium of 2.5 with BUN normal at 13 and creatinine 0.75. LFTs are grossly unremarkable. I added a magnesium given his repeat potassium being low at 2.5. It is normal at 1.9. At this point in time, he was given oral potassium of 40 mill equivalents, as well as 40 mill equivalents intravenously. I feel he can be discharged to follow-up with further potassium supplementation orally and repeat potassium check by his primary care provider. EKG had been obtained and interpreted by myself independently as sinus bradycardia at 56 bpm without ectopy or acute ST changes, no STEMI. Repeat examination prior to discharge shows him feeling the same, asymptomatic. He was written a prescription for potassium to take 40 mill equivalents daily for up to 5 days. He was told he should have his potassium rechecked by his primary care provider in the next 3 to 5 days. Return instructions to the emergency department were reviewed. Disposition is discharged home in stable condition. History & Record Review Discussion w/independent historian: Patient and Family Additional record(s) reviewed:: Prior outpatient record (Hypokalemia on outpatient labs.) Lab Data Attestation: I reviewed the patient's lab results. Labs: Laboratory Results - last 24 hr 05/01/25 05/01/25 05/01/25 12:20 13:37 14:31 WBC 5.4 RBC 4.49 L Hgb 14.1 Hct 38.7 L MCV 86.2 MCH 31.4 MCHC 36.4 H RDW Std Deviation 39.7 RDW Coeff of Sanju 12.7 Plt Count 225 MPV 9.6 Immature Gran % (Auto) 0.200 Neut % (Auto) 59.2 Lymph % (Auto) 26.8 [place] % (Auto) 11.2 H Eos % (Auto) 2.0 Baso % (Auto) 0.6 Absolute Neuts (auto) 3.2 Absolute Lymphs (auto) 1.44 Nucleated RBC % 0 Sodium Cancelled Cancelled 141 Potassium Cancelled Cancelled 2.5 L* Chloride Cancelled Cancelled 100 Carbon Dioxide Cancelled Cancelled 28.9 Anion Gap Cancelled Cancelled 12 BUN Cancelled Cancelled 13 Creatinine Cancelled Cancelled 0.75 Estim Creat Clear Calc Cancelled Cancelled 127.25 Est GFR (MDRD) Non-Af Cancelled Cancelled 107 BUN/Creatinine Ratio Cancelled Cancelled 17.7 Glucose Cancelled Cancelled 169 H Calcium Cancelled Cancelled 9.1 Magnesium 1.9 Total Bilirubin Cancelled Cancelled 0.57 AST Cancelled Cancelled 23 ALT Cancelled Cancelled 16 Alkaline Phosphatase Cancelled Cancelled 94 Total Protein Cancelled Cancelled 6.8 Albumin Cancelled Cancelled 4.2 Globulin Cancelled Cancelled 2.7 Albumin/Globulin Ratio Cancelled Cancelled 1.5 Discharge Plan Triage Chief Complaint: Abn Labs ED Provider: Alexandru Lee Dx/Rx/DC Orders Clinical Impression: Hypokalemia Instructions: ED Hypokalemia Prescriptions: New potassium chloride [Klor-Con M20] 20 mEq tablet,ER particles/crystals 40 meq PO DAILY Qty: 10 0RF Primary Care Provider: Isabel Stinson Referrals: Isabel Stinson NP-C [Primary Care Provider, Family Practice] - 3-5 Days Activity Restrictions/Additional Instructions: Supplement your potassium with 40 halie equivalents daily for the next 3 days. Have your potassium rechecked in the next 3 to 5 days by your primary care provider. Print Language: Yi Disposition Disposition: Home, Self Care Discharge Date/Time: 05/01/25 21:43 What to do if you have Problems For any increased pain, shortness of breath, bleeding, nausea or vomiting, chestpain, or any unexpected problems, contact your Primary Care Provider. Call [facility] ([phone]) or report to the closest Emergency Room. Call 911 if necessary. 05/01/252224 <Electronically signed by Alexandru Lee MD> Cosigner Signature (if applicable): CC: FAVIOLA Stinson ~ Signed [facility] Work Phone: Evaluation note Note Date & Type Note Facility Evaluation note No assessment information availa ble [facility] Work Phone: Hospital Discharge instructions Note Date & Type Note Facility Hospital Discharge instructions Additional Instructions Supplement your potassium with 40 halie equivalents daily for the next 3 days. Have your potassium rechecked in the next 3 to 5 days by your primary care provider. [facility] Work Phone: Reason for referral (narrative) Note Date & Type Note Facility Reason for referral (narrative) No reason for referral information available [facility] Work Phone: Advance Directives No Advanced Directives Records Found Advance Directive Response Recorded Date/ Time Living Will No December 25, 2020 1 0:44am Power of Test Examiner No December 25, 2020 10:44am Advance Directive Response Recorded Date/ Time Do you have a Healthcare Power of Test Examiner? No May 01, 2025 1:18pm Chief Complaint and Reason for Visit Chief Complaint Admit Date Abn labs May 01, 2025 12:10pm Summary Purpose Family History No Family History Records FoundNo Family History Records Found Additional Source Comments Goals (unrecognized section and content) Goals may be documented in a n alternate sectionGoals may be documented in an alternate sectionGoals may be documented in an alternate sectionGoals may be documented in an alternate section Care Teams (unrecognized sec tion and content) Team Status: Active Member Role Status Dates Clint Zewail , MD Family Provider Active Dr. Kenny Griffin DO Primary Care Provider Active Team Status: Inactive Member Role Status Dates Dr. Brad Maravilla MD Attending Provider, Referr ing Provider Active Dr. Kenny Griffin DO Primary Care Provider Active Team Status: Active Member Role/Relationship Status Dates Isabel Stinson [employer]-C Primary care physician Active Team Status: Active Member Role/Relationship Status Dates Isabel Stinson NP-C Primary care physician Active Start: April 30, 2025 Isabel Stinson NP-C Attending physician Active Start: April 30, 2025 Isabel Stinson NP-C Referring Provider Active Start: April 30, 2025 Team Status: Inactive Member Role/Relationship Status Dates Isabel Stinson NP-C Primary care physician Active Start: May 01, 2025 End: May 01, 2025 Alexandru Lee MD Attending physician Active Sta rt: May 01, 2025 End: May 01, 2025 Alexandru Lee MD Emergency Department Physician Active Start: May 01, 2025 End: May 01, 2025 Team Status: Active Member Role/Relationship Status Dates Isabel Stinson NP-C Primary care physician Active Start: May 06, 2025 Orlandobuluciarra Ribeiro VSC, [employer] SUPERVISOR-C Attending physician Active Start: May 06, 2025 Zebuluciarra Beam VSC, [employer]PER[employer]OR-C Referring Provider Active Start: May 06, 2025 Team Status: Inactive Member Role/Relationship Status Dates Isabel Stinson NP-C Primary care physician Active Start: April 30, 2025 End: April 30, 2025 Isabel Stinson NP-C Attending physician Active Start: April 30, 2025 End: April 30, 2025 Isabel Stinson [employer]-C Referring Provider Active Start: April 30, 2025 End: April 30, 2025 (unrecognized sect ion and content) No Status Records FoundNo Status Records Found INFORMATION SOURCE (unrecogn ized section and content) DATE CREATED AUTHOR 05/26/2025 [facility] DATE CREATED AUTHOR AUTHOR'S JAMES ATION 06/08/2025 [facility] FOR RECORDS PERTAINING TO PATIENTS WHO [...] BE BASED ON THE PRIMARY CLINICAL RECORDS. [facility] provides no warranty or guarantee of the accuracy or completeness of information in this document.
== END | disposition home or self-care (01) ==
LOC: MTLAB 15:21
PROVIDERS: PCP Nurse Practitioner Family; Referring Provider Nurse Practitioner Family; Visit Provider Nurse Practitioner Family
DX: D50.9 Iron deficiency anemia, unspecified (principal); E11.9 Type 2 diabetes mellitus without complications; E87.6 Hypokalemia
CPT/HCPCS: 36415; 80053; 82728; 83036; 83540; 83550; 85025

== ENCOUNTER → 2025-08-05 | Outpatient (CLI) | payer BC, SELFPAY ==
[2025-08-05 15:32] LABS: AST(SGOT) 16 U/L (<=37); Alanine Aminotransfer ALT/SGPT 13 U/L (<=46); Albumin, Serum 4.4 g/dL (3.5-5.0); Alkaline Phosphatase 105 U/L (40-129); Anion Gap 11 (7-18); BUN 14 mg/dL (4-19); BUN/Creat Ratio 17.3 RATIO (10-20); Calcium,Total 9.6 mg/dL (7.6-11.0); Carbon Dioxide 30.3 mmol/L (20.0-29.0); Chloride 100 mmol/L (96-106); Globulin 3.3 g/dL (2.2-4.2); Glucose 171 mg/dL (70-99); Potassium 3.0 mmol/L (3.5-5.1)
== END | disposition home or self-care (01) ==
LOC: MTLAB 13:25
PROVIDERS: PCP Nurse Practitioner Family; Referring Provider Nurse Practitioner Family; Visit Provider Nurse Practitioner Family
DX: E87.6 Hypokalemia (principal)
CPT/HCPCS: 36415; 80053; 82088

== ENCOUNTER → 2025-08-07 | Outpatient (CLI) | payer BC, SELFPAY | END | disposition home or self-care (01) | LOC: MTLAB 11:17 | PROVIDERS: PCP Nurse Practitioner Family; Referring Provider Nurse Practitioner Family; Visit Provider Nurse Practitioner Family | DX: E87.6 Hypokalemia (principal) ==